=== PATIENT | male | born 1970 | race Caucasian/White ===

== ENCOUNTER 2019-03-21 09:58 | Emergency (ER) | payer OTHER ==
[2019-03-21 10:23] VITALS: RESP 18
--- NOTE | 2019-03-21 11:25 | ED ---
ENT HPI - General Chief complaint: ENT Stated complaint: epistaxis Time Seen by Provider: 03/21/19 10:46 Source: patient Limitations: no limitations - History of Present Illness Initial comments: Patient is a 48-year-old male presents to emergency department for nose bleeding. Patient reports the bleeding started earlier today and he could not get out of control with holding pressure only. Patient reports he started swallowing blood as well. Patient reports he occasionally gets nosebleeds especially throughout the winter but has never been this severe. Patient does have high blood pressure and is controlled with medication from his primary care. Patient denies any headaches, fever, vomiting, nausea. Patient reports he is taking daily 81 mg aspirin. - Related Data Home Medications Medication Instructions Recorded Confirmed Aspirin EC [Ecotrin Low Dose] 81 mg PO DAILY 09/21/16 09/23/16 Atenolol 25 mg PO BID 09/21/16 09/23/16 Atorvastatin [Lipitor] 10 mg PO HS 09/21/16 09/23/16 Dapagliflozin/Metformin HCl 1 tab PO DAILY 09/21/16 09/23/16 [Xigduo Xr 10 mg-1,000 mg Tab] Folic Acid 0.4 mg PO DAILY 09/21/16 09/23/16 Lisinopril [Zestril] 10 mg PO DAILY 09/21/16 09/23/16 Loratadine [Claritin] 10 mg PO DAILY PRN 09/21/16 09/23/16 Multivit-Min/FA/Vit K/Lycopene 1 tab PO HS 09/21/16 09/23/16 [One-A-Day Men's 50+ Tablet] Testosterone Cypionate 400 mg PO QMONTH 03/21/19 03/21/19 [Depo-Testosterone] Previous Rx's Medication Instructions Recorded Diazepam [Valium] 5 mg PO QID PRN #10 tab 09/23/16 Amoxicillin 500 mg PO Q8H 7 Days #21 capsule 03/21/19 Allergies Allergy/AdvReac Type Severity Reaction Status Date / Time No Known Allergies Allergy Verified 03/21/19 11:17 Review of Systems ROS Statement: Those systems with pertinent positive or pertinent negative responses have been documented in the HPI. ROS Other: All systems not noted in ROS Statement are negative. Past Medical History Past Medical History: Diabetes Mellitus, Hypertension History of Any Multi-Drug Resistant Organisms: None Reported Past Surgical History: No Surgical Hx Reported Past Psychological History: No Psychological Hx Reported Smoking Status: Never smoker Past Alcohol Use History: None Reported Past Drug Use History: None Reported General Exam - General Exam Comments Initial Comments: Profuse bleeding from right nostril. Limitations: no limitations General appearance: alert, in no apparent distress, obese Head exam: Present: atraumatic, normocephalic, normal inspection Eye exam: Present: normal appearance, PERRL, EOMI Expanded Ear exam: Present: normal external inspection Throat exam: normal inspection Neck exam: Present: normal inspection, full ROM. Absent: tenderness, lymphadenopathy Respiratory exam: Present: normal lung sounds bilaterally. Absent: respiratory distress, wheezes, rales, rhonchi, stridor Cardiovascular Exam: Present: regular rate, normal rhythm, normal heart sounds Neurological exam: Present: alert, oriented X3 Psychiatric exam: Present: normal affect, normal mood Course Vital Signs 03/21/19 10:20 Temperature 97.9 F Pulse Rate 77 Respiratory 18 Rate Blood Pressure 151/91 O2 Sat by Pulse 95 Oximetry Medical Decision Making - Medical Decision Making Patient is a 48-year-old male presenting to the emergency department with a nosebleed. It appears to be an anterior bleed on physical exam. Afrin and holding pressure did not stop the bleeding. Nasal balloon catheter was inserted in the right nostril. Patient will be prescribed amoxicillin for 5 days. Patient advised to follow-up with the ENT. Patient advised to return to the emergency department if symptoms worsen. Case discussed with physician. Disposition Clinical Impression: Epistaxis Disposition: HOME SELF-CARE Condition: Stable Instructions (If sedation given, give patient instructions): Nosebleed (ED) Additional Instructions: Please follow with the ENT. Take medication as prescribed for 5 days. Please return to the emergency department if symptoms worsen. Is patient prescribed a controlled substance at d/c from ED?: No Referrals: Rob Cotto MD [Primary Care Provider] - 1-2 days Solitario Mathis MD [STAFF PHYSICIAN] - 1-2 days Time of Disposition: 12:59
[2019-03-21] MEDS ORDERED: OXYMETAZOLINE 0.05% NASL SPRAY 1 SPRAY BOTTLE NASAL STA (11:26)
--- NOTE | 2019-03-21 13:10 | XR ---
EXAMINATION TYPE: XR chest 1V DATE OF EXAM: 03/21/2019 COMPARISON: NONE HISTORY: Cough and pain per order. TECHNIQUE: Single frontal view of the chest is obtained. FINDINGS: Reticular interstitial prominence favors chronic parenchymal fibrosis bilaterally diffusel y. Elevated left hemidiaphragm is noted. There is no focal air space opacity, pleural effusion, or pn eumothorax seen. The cardiac silhouette size is upper limits of normal. The osseous structures are intact. IMPRESSION: Chronic parenchymal changes somewhat pronounced for patient's age. No acute pulmonary pr ocess.
[2019-03-21 13:21] VITALS: BP 144/91; PULSE 74; TEMP 97
== END 2019-03-21 13:21 | disposition home or self-care (01) ==
LOC: EC 09:58
DX: R04.0 Epistaxis (principal); E11.9 Type 2 diabetes mellitus without complications; I10 Essential (primary) hypertension; Z79.82 Long term (current) use of aspirin; Z79.84 Long term (current) use of oral hypoglycemic drugs; Z79.890 Hormone replacement therapy; Z79.899 Other long term (current) drug therapy
CPT/HCPCS: 30901; 71045; 99283

== ENCOUNTER 2019-05-24 09:00 | Emergency (ER) | payer OTHER ==
[2019-05-24 09:06] VITALS: TEMP 97.8
[2019-05-24] MEDS ORDERED: OXYMETAZOLINE 0.05% NASL SPRAY 1 SPRAY BOTTLE NASAL STA (09:07)
[2019-05-24] MEDS ORDERED: ATENOLOL 25 MG TAB PO STA (09:11)
--- NOTE | 2019-05-24 09:32 | ED ---
ENT HPI - General Chief complaint: ENT Stated complaint: nosebleed Time Seen by Provider: 05/24/19 09:06 Source: patient, RN notes reviewed Mode of arrival: ambulatory Limitations: no limitations - History of Present Illness Initial comments: 48-year-old male presents emergency Department with chief complaint of epistaxis. Patient states started hour half prior arrival. Patient states that he had slight dripping states that she went to hold his nose but seemed to not improved. Patient states he had a similar episode 2 months ago. Patient states that he used to gastric but does not take anymore. Patient also states he has a history of high blood pressure did not take his medications this morning. Patient denies any headache, dizziness, blurred vision, nausea vomiting. - Related Data Home Medications Medication Instructions Recorded Confirmed Atenolol 25 mg PO DAILY 09/21/16 05/24/19 Atorvastatin [Lipitor] 10 mg PO HS 09/21/16 05/24/19 Dapagliflozin/Metformin HCl 1 tab PO DAILY 09/21/16 05/24/19 [Xigduo Xr 10 mg-1,000 mg Tab] Multivit-Min/FA/Vit K/Lycopene 1 tab PO DAILY 09/21/16 05/24/19 [One-A-Day Men's 50+ Tablet] Diazepam [Valium] 2 mg PO HS 05/24/19 05/24/19 Losartan [Cozaar] 25 mg PO DAILY 05/24/19 05/24/19 Oxymetazoline 0.05% Nasl [place] 2 spray EA NOSTRIL DAILY PRN 05/24/19 05/24/19 [Afrin 0.05% Nasal [place]] Previous Rx's Medication Instructions Recorded Amoxicillin/Potassium Clav 1 tab PO Q12HR #14 tab 05/24/19 [Augmentin 875-125 Tablet] Allergies Allergy/AdvReac Type Severity Reaction Status Date / Time No Known Allergies Allergy Verified 05/24/19 09:27 Review of Systems ROS Statement: Those systems with pertinent positive or pertinent negative responses have been documented in the HPI. ROS Other: All systems not noted in ROS Statement are negative. Past Medical History Past Medical History: Diabetes Mellitus, Hypertension History of Any Multi-Drug Resistant Organisms: None Reported Past Surgical History: No Surgical Hx Reported Past Psychological History: No Psychological Hx Reported Smoking Status: Never smoker Past Alcohol Use History: None Reported Past Drug Use History: None Reported General Exam Limitations: no limitations General appearance: alert, in no apparent distress Head exam: Present: atraumatic, normocephalic, normal inspection Eye exam: Present: normal appearance, PERRL, EOMI. Absent: scleral icterus, conjunctival injection, periorbital swelling ENT exam: Present: normal oropharynx, mucous membranes moist, TM's normal bilaterally, normal external ear exam, other (Mild blood noted in bilateral nostrils). Absent: normal exam Neck exam: Present: normal inspection, full ROM. Absent: tenderness, meningismus, lymphadenopathy Respiratory exam: Present: normal lung sounds bilaterally. Absent: respiratory distress, wheezes, rales, rhonchi, stridor Cardiovascular Exam: Present: regular rate, normal rhythm, normal heart sounds. Absent: systolic murmur, diastolic murmur, rubs, gallop, clicks Neurological exam: Present: alert, oriented X3, CN II-XII intact, reflexes normal. Absent: motor sensory deficit Skin exam: Present: warm, dry, intact, normal color. Absent: rash Course Vital Signs 05/24/19 05/24/19 09:03 10:23 Temperature 97.8 F Pulse Rate 65 Respiratory 16 Rate Blood Pressure 168/102 147/98 O2 Sat by Pulse 96 Oximetry Procedures - Procedures Initial comment: Nose packing: Right nostril on a rock there was placed with no complications, anterior posterior balloon were inflated with 3 mL of air, hemostasis was achieved Medical Decision Making - Medical Decision Making 48-year-old male presented for epistaxis. Patient had mild hypertension given patient's blood pressure medication that he did not take this morning. Patient had Afrin and nose clamp applied no success with hemostasis. Patient had Rhino Rocket placed. Patiently placed on antibiotics and follow-up with Dr. Mathis as he has seen him in the past. Disposition Clinical Impression: Epistaxis Disposition: HOME SELF-CARE Condition: Stable Instructions (If sedation given, give patient instructions): Nosebleed (ED) Additional Instructions: Please return to the Emergency Department if symptoms worsen or any other concerns. Prescriptions: Amoxicillin/Potassium Clav [Augmentin 875-125 Tablet] 1 tab PO Q12HR #14 tab Is patient prescribed a controlled substance at d/c from ED?: No Referrals: Rob Cotto MD [Primary Care Provider] - 1-2 days Solitario Mathis MD [STAFF PHYSICIAN] - 1-2 days Time of Disposition: 11:24
[2019-05-24] MEDS ORDERED: LOSARTAN 25 MG TAB PO STA (10:23)
[2019-05-24 11:31] VITALS: BP 155/100; PULSE 70; RESP 18
== END 2019-05-24 11:30 | disposition home or self-care (01) ==
LOC: EC 09:00
DX: R04.0 Epistaxis (principal); I10 Essential (primary) hypertension; E11.9 Type 2 diabetes mellitus without complications; Z79.84 Long term (current) use of oral hypoglycemic drugs; Z79.899 Other long term (current) drug therapy
CPT/HCPCS: 30901; 99283

== ENCOUNTER → 2020-06-19 | Outpatient (CLI) | payer BC ==
[2020-06-19 11:47] LABS: African American GFR (CKD) >90 (>60 ml/min/1.73 sqM); Blood Urea Nitrogen 12 mg/dL (9-20); Non-African American GFR(CKD) >90 (>60 ml/min/1.73 sqM)
--- NOTE | 2020-06-19 12:42 | CT ---
EXAMINATION TYPE: CT abdomen pelvis wo/w con DATE OF EXAM: 06/19/2020 COMPARISON: HISTORY: Mid Abdominal pain CT DLP: 3784.9 mGycm Automated exposure control for dose reduction was used. CONTRAST: CT scan of the abdomen pelvis is performed with IV Contrast, patient injected with 100 mL of Isovue 3 00. FINDINGS- LUNG BASES- No significant abnormality is appreciated. LIVER/GB- No gross abnormality is appreciated. PANCREAS- No gross abnormality is seen. SPLEEN- No gross abnormality is seen. ADRENALS- No gross abnormality is seen. KIDNEYS/BLADDER- no hydronephrosis nephrolithiasis or renal mass. BOWEL-there are multiple dilated small bowel loops some of which have a thickened wall. Differential diagnosis would include an ileus and enteritis. Partial obstructive pattern not excluded. Appendix no rmal. Report called to referring clinician. LYMPH NODES- No greater than 1cm abdominal or pelvic lymph nodes areappreciated. OSSEOUS STRUCTURES-hypertrophic degenerative change of the spine. OTHER- aorta normal caliber. No free fluid or free air. IMPRESSION- 1. Multiple dilated small bowel loops one of which appears a little thickened bowel wall. Differentia l diagnosis includes ileus and enteritis. Partial obstructive pattern not excluded.
== END | disposition home or self-care (01) ==
LOC: RADCTMAIN 10:12
PROVIDERS: ATTEND Nurse Practitioner Family
DX: K63.89 Other specified diseases of intestine (principal); K52.9 Noninfective gastroenteritis and colitis, unspecified; K56.7 Ileus, unspecified
CPT/HCPCS: 82565; 84520; 74178; 36415; Q9967

== ENCOUNTER 2022-06-27 21:29 | Inpatient (IN) | payer BC ==
[2022-06-27] MEDS ORDERED: SODIUM CHLORIDE 0.9% 1,000 ML IV STA (21:36)
[2022-06-27] MEDS ORDERED: ONDANSETRON 4 MG/2 ML VIAL IVP STA ×2 (21:36→21:50)
[2022-06-27 21:53] LABS: Glucose,Whole Blood 215 mg/dL (70-110)
[2022-06-27 22:01] LABS: Basophils # (A) 0.1 k/uL (0-0.2); Basophils % (A) 1 %; Eosinophils # (A) 0.1 k/uL (0-0.7); Eosinophils % (A) 2 %; Lymphocytes # (A) 0.3 k/uL (1.0-4.8); Lymphocytes % (A) 5 %; MCH 30.9 pg (25.0-35.0); MCHC 34.2 g/dL (31.0-37.0); MCV 90.5 fL (80.0-100.0); Mean Platelet Volume 8.8; Monocytes # (A) 0.5 k/uL (0-1.0); Monocytes % (A) 8 %; Neutrophils # (A) 4.9 k/uL (1.3-7.7); Neutrophils % (A) 83 %; Platelet Count 164 k/uL (150-450); RBC 6.31 m/uL (4.30-5.90); RDW 13.2 % (11.5-15.5); WBC 5.8 k/uL (3.8-10.6)
--- NOTE | 2022-06-27 22:09 | ED ---
Abdominal Pain HPI - General Chief Complaint: Abdominal Pain Stated Complaint: Abdominal pain Time Seen by Provider: 06/27/22 21:32 Source: patient, RN notes reviewed Mode of arrival: ambulatory - History of Present Illness Initial Comments: This is a pleasant 52-year-old male history of diabetes mellitus and hypertension. He presents to the emergency department today complaining of upper abdominal discomfort and several episodes of vomiting yesterday. Patient states that the symptoms started on . Patient states he still having bowel movements and passing gas. Patient states his abdomen is distended and bloated. Patient denying any chest pain or shortness of breath. Patient states the symptoms started 89 vacationing in [place]. No headache, no fever or chills, no changes in vision or hearing, no sore throat or difficulty with speech, no neck pain, no chest pain or shortness of breath, no changes in urination or bowel movements, no numbness or tingling, no extremity pain, no skin rashes or lesions. Past medical, surgical, social, and family history reviewed. - Related Data Home Medications Medication Instructions Recorded Confirmed Atorvastatin [Lipitor] 10 mg PO HS 09/21/16 05/24/19 Dapagliflozin/Metformin HCl 1 tab PO DAILY 09/21/16 05/24/19 [Xigduo Xr 10 mg-1,000 mg Tab] Multivit-Min/Folic/Vit K/Lycop 1 tab PO DAILY 09/21/16 05/24/19 [One-A-Day Men's 50+ Tablet] atenoloL 25 mg PO DAILY 09/21/16 05/24/19 Losartan [Cozaar] 25 mg PO DAILY 05/24/19 05/24/19 Oxymetazoline 0.05% Nasl [place] 2 spray EA NOSTRIL DAILY PRN 05/24/19 05/24/19 [Afrin 0.05% Nasal [place]] diazePAM [Valium] 2 mg PO HS 05/24/19 05/24/19 Previous Rx's Medication Instructions Recorded Amoxicillin/Potassium Clav 1 tab PO Q12HR #14 tab 05/24/19 [Augmentin 875-125 Tablet] Allergies Allergy/AdvReac Type Severity Reaction Status Date / Time No Known Allergies Allergy Verified 06/27/22 21:34 Review of Systems ROS Statement: Those systems with pertinent positive or pertinent negative responses have been documented in the HPI. ROS Other: All systems not noted in ROS Statement are negative. Past Medical History Past Medical History: Diabetes Mellitus, Hypertension History of Any Multi-Drug Resistant Organisms: None Reported Past Surgical History: No Surgical Hx Reported Past Psychological History: No Psychological Hx Reported Past Alcohol Use History: None Reported Past Drug Use History: None Reported General Exam - General Exam Comments Initial Comments: Obese male and mild distress secondary to abdominal discomfort Vital signs reviewed, patient tachycardic General appearance: alert, in distress, obese Head exam: Present: atraumatic, normocephalic, normal inspection Eye exam: Present: normal appearance, PERRL, EOMI. Absent: scleral icterus, conjunctival injection, periorbital swelling ENT exam: Present: normal exam, mucous membranes moist Neck exam: Present: normal inspection. Absent: tenderness, meningismus, lymphadenopathy Respiratory exam: Present: normal lung sounds bilaterally. Absent: respiratory distress, wheezes, rales, rhonchi, stridor, chest wall tenderness, accessory muscle use Cardiovascular Exam: Present: normal rhythm, tachycardia, normal heart sounds. Absent: systolic murmur, diastolic murmur, rubs, gallop, clicks GI/Abdominal exam: Present: distended, normal bowel sounds. Absent: tenderness, guarding, rebound, rigid Extremities exam: Present: normal inspection, full ROM, normal capillary refill. Absent: tenderness, pedal edema, joint swelling, calf tenderness Back exam: Present: normal inspection Neurological exam: Present: alert, oriented X3, CN II-XII intact Psychiatric exam: Present: normal affect, normal mood Skin exam: Present: warm, dry, intact, normal color. Absent: rash Course Vital Signs 06/27/22 06/27/22 21:32 22:10 Temperature 98.1 F Pulse Rate 124 H 106 H Respiratory 18 Rate Blood Pressure 132/84 149/118 O2 Sat by Pulse 96 Oximetry - Reevaluation(s) Reevaluation #1: 06/27/22 23:28 Medical record is reviewed Symptoms are mildly improved, patient still has nausea, NG tube ordered Patient is informed of results and questions answered Patient in no distress - Consultations Consultation #1: Call placed for the on-call surgeon, Dr. Christensen Consultation #2: Case discussed with the hospitalist physician, Dr. Philippe who accepts the patient for admission. Medical Decision Making - Medical Decision Making I initially evaluated the patient. I did have the ED attending physician, Dr. Evans evaluated the patient immediately after my evaluation. Patient's presents in mild seems to be consistent with gastroenterology etiology. Patient's EKG did show interventricular conduction delay however the patient had no chest pain. We'll order a general abdominal cardiac workup. Plan for reevaluation. Inflammatory versus infectious etiology possible. Patient previously has had a bowel obstruction which resolved with IV hydration and bowel rest. Patient has had no previous abdominal surgeries. Patient computed tomography scan does show multiple dilated loops of small bowel up to 5.7 cm, transition point could be the distal jejunum or proximal ileum. Consistent with mechanical mid small bowel obstruction. Over the last and the patient had this issue, and it actually resolved in the emergency department. Patient did not require admission nor an NG tube. - Lab Data Result diagrams: 06/27/22 21:50 06/27/22 21:50 Lab Results 06/27/22 06/27/22 06/27/22 Range/Units 21:50 21:50 21:50 WBC 5.8 (3.8-10.6) k/uL RBC 6.31 H (4.30-5.90) m/uL Hgb 19.5 H* (13.0-17.5) gm/dL Hct 57.0 H (39.0-53.0) % MCV 90.5 (80.0-100.0) fL MCH 30.9 (25.0-35.0) pg MCHC 34.2 (31.0-37.0) g/dL RDW 13.2 (11.5-15.5) % Plt Count 164 (150-450) k/uL MPV 8.8 Neutrophils % 83 % Lymphocytes % 5 % Monocytes % 8 % Eosinophils % 2 % Basophils % 1 % Neutrophils # 4.9 (1.3-7.7) k/uL Lymphocytes # 0.3 L (1.0-4.8) k/uL Monocytes # 0.5 (0-1.0) k/uL Eosinophils # 0.1 (0-0.7) k/uL Basophils # 0.1 (0-0.2) k/uL Sodium 135 L (137-145) mmol/L Potassium 3.8 (3.5-5.1) mmol/L Chloride 99 (98-107) mmol/L Carbon Dioxide 24 (22-30) mmol/L Anion Gap 12 mmol/L BUN 16 (9-20) mg/dL Creatinine 0.63 L (0.66-1.25) mg/dL Est GFR (CKD-EPI)AfAm >90 (>60 ml/min/1.73 sqM) Est GFR (CKD-EPI)NonAf >90 (>60 ml/min/1.73 sqM) Glucose 218 H (74-99) mg/dL POC Glucose (mg/dL) (70-110) mg/dL POC Glu Zinc Chloride Operator ID Plasma Lactic Acid Denilson (0.7-2.0) mmol/L Calcium 9.4 (8.4-10.2) mg/dL Magnesium 1.7 (1.6-2.3) mg/dL Total Bilirubin 1.7 H (0.2-1.3) mg/dL AST 30 (17-59) U/L ALT 31 (4-49) U/L Alkaline Phosphatase 63 (38-126) U/L Troponin I <0.012 (0.000-0.034) ng/mL Total Protein 7.1 (6.3-8.2) g/dL Albumin 4.5 (3.5-5.0) g/dL Amylase 46 (30-110) U/L Lipase 35 (23-300) U/L 06/27/22 06/27/22 Range/Units 21:50 22:16 WBC (3.8-10.6) k/uL RBC (4.30-5.90) m/uL Hgb (13.0-17.5) gm/dL Hct (39.0-53.0) % MCV (80.0-100.0) fL MCH (25.0-35.0) pg MCHC (31.0-37.0) g/dL RDW (11.5-15.5) % Plt Count (150-450) k/uL MPV Neutrophils % % Lymphocytes % % Monocytes % % Eosinophils % % Basophils % % Neutrophils # (1.3-7.7) k/uL Lymphocytes # (1.0-4.8) k/uL Monocytes # (0-1.0) k/uL Eosinophils # (0-0.7) k/uL Basophils # (0-0.2) k/uL Sodium (137-145) mmol/L Potassium (3.5-5.1) mmol/L Chloride (98-107) mmol/L Carbon Dioxide (22-30) mmol/L Anion Gap mmol/L BUN (9-20) mg/dL Creatinine (0.66-1.25) mg/dL Est GFR (CKD-EPI)AfAm (>60 ml/min/1.73 sqM) Est GFR (CKD-EPI)NonAf (>60 ml/min/1.73 sqM) Glucose (74-99) mg/dL POC Glucose (mg/dL) 215 H (70-110) mg/dL POC Glu Zinc Chloride Operator Carlos Glass Plasma Lactic Acid Denilson 1.5 (0.7-2.0) mmol/L Calcium (8.4-10.2) mg/dL Magnesium (1.6-2.3) mg/dL Total Bilirubin (0.2-1.3) mg/dL AST (17-59) U/L ALT (4-49) U/L Alkaline Phosphatase (38-126) U/L Troponin I (0.000-0.034) ng/mL Total Protein (6.3-8.2) g/dL Albumin (3.5-5.0) g/dL Amylase (30-110) U/L Lipase (23-300) U/L - EKG Data EKG Comments: EKG shows sinus tachycardia with a rate of 116. Interventricular conduction delay with a widened QRS at 154 ms. Remainder of the intervals are normal. Patient does have nonspecific ST-T wave changes in the lateral leads. EKG was reviewed immediately by the ED attending physician. Disposition Clinical Impression: Small bowel obstruction, Intraventricular conduction delay, Uncontrolled hypertension Disposition: ADMITTED IP TO THIS HOSP Condition: Stable Referrals: Rob Cotto MD [Primary Care Provider] - 1-2 days
[2022-06-27 22:13] LABS: ALT 31 U/L (4-49); AST 30 U/L (17-59); African American GFR (CKD) >90 (>60 ml/min/1.73 sqM); Albumin 4.5 g/dL (3.5-5.0); Alkaline Phosphatase 63 U/L (38-126); Amylase 46 U/L (30-110); Anion Gap 12 mmol/L; Blood Urea Nitrogen 16 mg/dL (9-20); Calcium 9.4 mg/dL (8.4-10.2); Carbon Dioxide 24 mmol/L (22-30); Chloride 99 mmol/L (98-107); Glucose 218 mg/dL (74-99); Lipase 35 U/L (23-300); Magnesium 1.7 mg/dL (1.6-2.3); Non-African American GFR(CKD) >90 (>60 ml/min/1.73 sqM); Potassium 3.8 mmol/L (3.5-5.1); Sodium 135 mmol/L (137-145); Total Bilirubin 1.7 mg/dL (0.2-1.3); Total Protein 7.1 g/dL (6.3-8.2)
[2022-06-27 22:37] LABS: HGB 19.5 gm/dL (13.0-17.5)
--- NOTE | 2022-06-27 22:37 | XR ---
EXAMINATION TYPE: XR abdomen acute w cxr DATE OF EXAM: 06/27/2022 COMPARISON: Chest x-ray 03/21/2019 HISTORY: Pain TECHNIQUE: 6 views FINDINGS: Heart and mediastinum are normal. Lungs are clear of infiltrate. No pleural effusion. No he art failure. There are multiple dilated fluid-filled and air-filled small bowel loops in the mid abdomen. No free air. No calcifications seen over the kidneys. IMPRESSION: No active cardiopulmonary disease. Dilated small bowel suggestive of mechanical small bowel obstruction. Heart and lungs not changed compared to the old exam.
--- NOTE | 2022-06-27 23:21 | CT ---
EXAMINATION TYPE: CT abdomen pelvis w con DATE OF EXAM: 06/27/2022 COMPARISON: 06/19/2020 HISTORY: abd pain CT DLP: 2189.3 mGycm Automated exposure control for dose reduction was used. CONTRAST: Performed with IV Contrast, patient injected with 100 mL of Isovue 300. Images obtained from the diaphragm to the floor the pelvis with the IV contrast. The lung bases are clear. No pleural effusion. Heart size is normal. No pericardial effusion. Liver s pleen and stomach pancreas gallbladder appear intact. The bile ducts are not dilated. There is no adr enal mass. Kidneys show satisfactory contrast opacification. There is no hydronephrosis. Ureters are not dilated. There is no retroperitoneal adenopathy. No free fluid in the pelvis. No pelvic mass. Palmer dder distends smoothly. No inguinal hernia. No pelvic mass. There are multiple dilated fluid-filled small bowel loops with fluid levels. Small bowel dilated up t o 5.7 cm. Appendix appears normal. The terminal ileum is not dilated. Transition point could be the d istal jejunum or proximal ileum on the left side of the abdomen near the abdominal wall. No obstructi ng mass seen. This could be a stricture. There is no free air. There is no ascites. The lumbar vertebrae have normal alignment. No compression fracture. There is some spurring in the mariana mbar spine. Bony pelvis is intact. The hip joints are intact. IMPRESSION: Dilated small bowel suggestive of mechanical mid small bowel obstruction which is a change compared t o old exam. Normal appendix.
[2022-06-27] MEDS ORDERED: ONDANSETRON 4 MG/2 ML VIAL IVP PRN (23:49)
[2022-06-27] MEDS ORDERED: NALOXONE 0.4 MG/ML 1 ML VIAL IV PRN (23:49)
[2022-06-27] MEDS ORDERED: MORPHINE SULFATE 4 MG/ML SYRINGE IV PRN (23:49)
[2022-06-27] MEDS ORDERED: DEXTROSE 50% SYRINGE 50 ML IVP PRN ×2 (23:52)
[2022-06-28 00:02] LABS: Appearance,Urine Clear (Clear); Bilirubin,Urine Negative (Negative); Blood,Urine Negative (Negative); Color,Urine Yellow; Glucose,Urine (UA) 4+ (Negative); Leukocyte Esterase,Urine Negative (Negative); Nitrite,Urine Negative (Negative); PH, Urine 5.5 (5.0-8.0); Protein,Urine Trace (Negative); Urobilinogen,Urine <2.0 mg/dL (<2.0)
[2022-06-28 00:03] LABS: Specific Gravity,Urine >1.050 (1.001-1.035)
[2022-06-28 00:05] LABS: Ketones,Urine 2+ (Negative)
[2022-06-28] MEDS: HEPARIN SODIUM,PORCINE/PF 5,000 UNIT/0.5 ML SYRINGE SQ SCH ×3 (01:58→16:47)
[2022-06-28] MEDS: INSULIN ASPART (NovoLOG) 100 UNIT/ML VIAL SQ SCH ×6 (01:59→20:52)
[2022-06-28] MEDS: SODIUM CHLORIDE 0.9% 1,000 ML IV SCH ×4 (01:59→22:53)
--- NOTE | 2022-06-28 03:27 | P.HPIM ---
History of Present Illness H&P Date: 06/27/22 Chief Complaint: abdominal pain 52-year-old male with diabetes mellitus on oral hypoglycemic agents, hypertension Patient comes in with 3 day history of worsening abdominal pain and distention associated with episodes of vomiting nonbilious nonbloody. He reports that she still passing bowel movements loose in nature nonbloody and still passing gases however is started to affect his breathing gets his belly is getting bigger it all started after history of to [place] and eating new foods. Initially he thought he might have had something upset his stomach however he decided to come in due to persistent symptoms. Denies any fevers denies any chills denies any history of any surgeries of the belly denies any changes in his urinary habits patient is unable to keep anything down he has poor appetite and today abdominal distention started affecting his breathing. In the ED workup showed no leukocytosis, lactic acid within normal limits, renal function within normal limits. Polycythemia with hemoglobin 19.5 most recent hemoglobin was from 2017 hemoglobin was around 18. Imaging of the abdomen with CAT scan suggested mechanical small bowel obstruction, surgery notified by ED attempted NG tube insertion in the ED however failed through both nostrils Review of Systems Pertinent positives as noted in HPI. All other systems were reviewed and are negative Past Medical History Past Medical History: Diabetes Mellitus, Hypertension Additional Past Medical History / Comment(s): small bowel obst. History of Any Multi-Drug Resistant Organisms: None Reported Past Surgical History: No Surgical Hx Reported Past Psychological History: No Psychological Hx Reported Smoking Status: Never smoker Past Alcohol Use History: None Reported Past Drug Use History: None Reported - Past Family History Father Family Medical History: Diabetes Mellitus Mother Family Medical History: Diabetes Mellitus Medications and Allergies Home Medications Medication Instructions Recorded Confirmed Type Atorvastatin [Lipitor] 10 mg PO HS 09/21/16 05/24/19 History Dapagliflozin/Metformin HCl 1 tab PO DAILY 09/21/16 05/24/19 History [Xigduo Xr 10 mg-1,000 mg Tab] Multivit-Min/Folic/Vit K/Lycop 1 tab PO DAILY 09/21/16 05/24/19 History [One-A-Day Men's 50+ Tablet] atenoloL 25 mg PO DAILY 09/21/16 05/24/19 History Amoxicillin/Potassium Clav 1 tab PO Q12HR #14 tab 05/24/19 Rx [Augmentin 875-125 Tablet] Losartan [Cozaar] 25 mg PO DAILY 05/24/19 05/24/19 History Oxymetazoline 0.05% Nasl [place] 2 spray EA NOSTRIL DAILY PRN 05/24/19 05/24/19 History [Afrin 0.05% Nasal [place]] diazePAM [Valium] 2 mg PO HS 05/24/19 05/24/19 History Allergies Allergy/AdvReac Type Severity Reaction Status Date / Time No Known Allergies Allergy Verified 06/27/22 21:34 Physical Exam Vitals: Vital Signs Temp Pulse Resp BP Pulse Ox 06/28/22 00:25 97 140/91 97 06/27/22 23:54 95 139/84 06/27/22 22:10 106 H 149/118 06/27/22 21:32 98.1 F 124 H 18 132/84 96 Intake and Output 06/27/22 06/27/22 06/28/22 14:59 22:59 06:59 Other: Weight 120.202 kg 120.202 kg Constitutional: No acute distress, conversant, pleasant Eyes: Anicteric sclerae, moist conjunctiva, Pupils equal round reactive to light ENMT: NC/AT Oropharynx clear, no erythema, or exudates Neck: Supple, FROM, no masses, or JVD No carotid bruits No thyromegaly Lungs: Clear to auscultation Clear to percussion Normal respiratory effort, no accessory muscle use Cardiovascular: Heart regular in rate and rhythm, No murmurs, gallops, or rubs No peripheral edema Abdominal: abdomen distended, discomfort to deep palpation no guarding, rebound or rigidity Abdomen moving with respiration bowel sounds sluggish No hepatomegaly, No splenomegaly No palpable mass No abdominal wall hernia noted Skin: Normal temperature, tone, texture, turgor No induration No subcutaneous nodules No rash, lesions No ulcers Extremities: No digital cyanosis No clubbing Pedal pulses intact and symmetrical Radial pulses intact and symmetrical No calf tenderness Psychiatric: Alert and oriented to person, place and time Appropriate affect fair judgement Neuro Muscles Strength 5/5 in all 4 extremities Sensation to light touch grossly present throughout Cranial nerves II-XII grossly intact No focal sensory deficits Lymphatics: no palpable cervical or supraclavicular , or inguinal lymph nodes Results CBC & Chem 7: 06/27/22 21:50 06/27/22 21:50 Labs: Abnormal Lab Results - Last 24 Hours (Table) 06/27/22 06/27/22 06/27/22 Range/Units 21:50 21:50 21:50 RBC 6.31 H (4.30-5.90) m/uL Hgb 19.5 H* (13.0-17.5) gm/dL Hct 57.0 H (39.0-53.0) % Lymphocytes # 0.3 L (1.0-4.8) k/uL Sodium 135 L (137-145) mmol/L Creatinine 0.63 L (0.66-1.25) mg/dL Glucose 218 H (74-99) mg/dL POC Glucose (mg/dL) 215 H (70-110) mg/dL Total Bilirubin 1.7 H (0.2-1.3) mg/dL Ur Specific [place] (1.001-1.035) Urine Protein (Negative) Urine Glucose (UA) (Negative) Urine Ketones (Negative) 06/27/22 Range/Units 23:50 RBC (4.30-5.90) m/uL Hgb (13.0-17.5) gm/dL Hct (39.0-53.0) % Lymphocytes # (1.0-4.8) k/uL Sodium (137-145) mmol/L Creatinine (0.66-1.25) mg/dL Glucose (74-99) mg/dL POC Glucose (mg/dL) (70-110) mg/dL Total Bilirubin (0.2-1.3) mg/dL Ur Specific [place] >1.050 H (1.001-1.035) Urine Protein Trace H (Negative) Urine Glucose (UA) 4+ H (Negative) Urine Ketones 2+ H (Negative) Thrombosis Risk Factor Assmnt - Choose All That Apply Any of the Below Risk Factors Present?: Yes Each Factor Represents 1 point: Obesity (BMI >25) Other Risk Factors: No Other congenital or acquired thrombophilia - If yes, enter type in comment: No Thrombosis Risk Factor Assessment Total Risk Factor Score: 1 Thrombosis Risk Factor Assessment Level: Low Risk Assessment and Plan Assessment: small bowel obstruction Conservative management Surgery on consult IV fluid hydration normal saline Pain control Symptomatic control nausea vomiting Nothing by mouth CT imaging of the abdomen showed mechanical small bowel obstruction lactic acid within normal limits Renal function within normal limits Polycythemia Follow-up hemoglobin level Consider outpatient workup for polycythemia Hematology consult Chronic conditions Diabetes mellitus Assessment sliding scale Hypertension Resume home blood pressure meds DVT prophylaxis heparin subcu 3 times a day Full code
[2022-06-28 03:31] LABS: Basophils # (A) 0.1 k/uL (0-0.2); Basophils % (A) 1 %; Eosinophils # (A) 0.1 k/uL (0-0.7); Eosinophils % (A) 2 %; HGB 18.6 gm/dL (13.0-17.5); Lymphocytes # (A) 0.4 k/uL (1.0-4.8); Lymphocytes % (A) 7 %; MCH 30.3 pg (25.0-35.0); MCHC 33.1 g/dL (31.0-37.0); MCV 91.7 fL (80.0-100.0); Mean Platelet Volume 8.7; Monocytes # (A) 0.6 k/uL (0-1.0); Monocytes % (A) 12 %; Neutrophils # (A) 3.6 k/uL (1.3-7.7); Neutrophils % (A) 76 %; Platelet Count 148 k/uL (150-450); RBC 6.14 m/uL (4.30-5.90); RDW 13.3 % (11.5-15.5); WBC 4.7 k/uL (3.8-10.6)
[2022-06-28 03:33] LABS: HCT 56.3 % (39.0-53.0)
[2022-06-28 03:42] LABS: ALT 35 U/L (4-49); AST 41 U/L (17-59); African American GFR (CKD) >90 (>60 ml/min/1.73 sqM); Albumin 4.1 g/dL (3.5-5.0); Alkaline Phosphatase 60 U/L (38-126); Anion Gap 10 mmol/L; Blood Urea Nitrogen 15 mg/dL (9-20); Carbon Dioxide 23 mmol/L (22-30); Chloride 101 mmol/L (98-107); Glucose 186 mg/dL (74-99); Magnesium 1.7 mg/dL (1.6-2.3); Non-African American GFR(CKD) >90 (>60 ml/min/1.73 sqM); Potassium 3.9 mmol/L (3.5-5.1); Sodium 134 mmol/L (137-145); Total Bilirubin 1.4 mg/dL (0.2-1.3); Total Protein 6.7 g/dL (6.3-8.2)
[2022-06-28 04:04] LABS: Glucose,Whole Blood 171 mg/dL (70-110)
[2022-06-28 09:41] LABS: Glucose,Whole Blood 179 mg/dL (70-110)
[2022-06-28 11:43] LABS: Glucose,Whole Blood 138 mg/dL (70-110)
[2022-06-28] MEDS ORDERED: BENZOCAINE SPRAY 1 CAN MUCOUS MEM PRN (12:21)
--- NOTE | 2022-06-28 12:44 | XR ---
EXAMINATION TYPE: XR abdomen 2V DATE OF EXAM: 06/28/2022 COMPARISON: CT abdomen and pelvis 06/27/2022 HISTORY: Abdomen pain, bowel obstruction TECHNIQUE: Abdomen is examined upright view 2 supine views were obtained. FINDINGS: Nasogastric tube is in place with tip in the proximal left arm in the abdomen. There are multiple differential air-fluid levels within dilated small bowel. Small bowel loops measur e 6.9 cm. No free air is evident. No mass effect is evident. Small amount colonic bowel gas in the right lower quadrant. Some air may be within the transverse colon. IMPRESSION: 1. Findings suggestive of partial small bowel obstruction. Findings appear stable from comparison.
--- NOTE | 2022-06-28 12:44 | P.CRDCN ---
History of Present Illness Consult date: 06/28/22 History of present illness: HISTORY OF PRESENT ILLNESS: This is a 52 year old male with a past medical history significant for hypertension, hyperlipidemia, and diabetes. 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 We have been asked to see the patient in consultation for abnormal EKG. Patient examined at the bedside. Patient presented to emergency room with a chief complaint of abdominal pain. Patient was found to have bowel obstruction and had an NG tube inserted. General surgery has been consulted for evaluation. The patient denies any chest pain or pressure. He denies any shortness of breath. He denies any previous cardiac workup including a stress test or cardiac catheterization. Patient's vital signs are stable. * EKG reveals sinus tachycardia with left bundle branch block. Telemetry reveals sinus mechanism with left bundle-branch block. * Laboratory data: WBC 4.7. Hemoglobin 18.6. Platelet count 148. Sodium 134. Potassium 3.9. BUN 15. Creatinine 0.72. Troponin negative 3 * Current home cardiac medications include Lipitor 10 mg at night, Cozaar 25 mg daily, atenolol 25 mg twice a day REVIEW OF SYSTEMS: At the time of my exam: CONSTITUTIONAL: Denies fever or chills. HEENT: Denies blurred vision, vision changes, or eye pain. Denies hemoptysis CARDIOVASCULAR: Denies chest pain. Denies orthopnea. Denies PND. Denies palpitations RESPIRATORY: Denies shortness of breath. GASTROINTESTINAL: Denies abdominal pain. Denies nausea or vomiting. HEMATOLOGIC: Denies bleeding disorders. GENITOURINARY: Denies any blood in urine. SKIN: Denies pruitis. Denies rash. PHYSICAL EXAM: VITAL SIGNS: Reviewed. GENERAL: Well-developed in no acute distress. HEENT: Head is normocephalic. Pupils are equal, round. Sclerae anicteric. Mucous membranes of the mouth are moist. Neck supple. No JVD or thyromegaly LUNGS: Respirations even and unlabored. Lungs essentially clear to auscultation bilaterally. HEART: Regular rate and rhythm. S1 and S2 heard. ABDOMEN: Soft. Nondistended. Nontender. EXTREMITIES: Normal range of motion. No clubbing or cyanosis. Peripheral p ulses intact. No lower extremity edema NEUROLOGIC: Awake and alert. Oriented x 3. ASSESSMENT: Abdominal pain Small bowel obstruction Abnormal EKG revealing left bundle branch block, appears new compared to old EKG Hypertension Hyperlipidemia Diabetes PLAN: Obtain 2-D echo to assess cardiac structure and function Resume home cardiac medications Gen. surgery consulted. Await evaluation. Patient is currently stable from a cardiac perspective. However when his acute issues resolve he will require further cardiac workup on an outpatient basis. Further recommendations pending patient's course Nurse practitioner note has been reviewed by physician. Signing provider agrees with the documented findings, assessment, and plan of care. Past Medical History Past Medical History: Diabetes Mellitus, Hypertension Additional Past Medical History / Comment(s): small bowel obst. History of Any Multi-Drug Resistant Organisms: None Reported Past Surgical History: No Surgical Hx Reported Past Psychological History: No Psychological Hx Reported Smoking Status: Never smoker Past Alcohol Use History: None Reported Past Drug Use History: None Reported - Past Family History Father Family Medical History: Diabetes Mellitus Mother Family Medical History: Diabetes Mellitus Medications and Allergies Home Medications Medication Instructions Recorded Confirmed Type Atorvastatin [Lipitor] 10 mg PO HS@199909/21/16 06/28/22 History Dapagliflozin/Metformin HCl 1 tab PO DAILY@0609/21/16 06/28/22 History [Xigduo Xr 10 mg-1,000 mg Tab] Multivit-Min/Folic/Vit K/Lycop 1 tab PO DAILY@0600 09/21/16 06/28/22 History [One-A-Day Men's 50+ Tablet] atenoloL 25 mg PO BID@599,199909/21/16 06/28/22 History Losartan [Cozaar] 25 mg PO DAILY@59905/24/19 06/28/22 History diazePAM [Valium] 2 mg PO HS@199905/24/19 06/28/22 History Acetaminophen Tab [Tylenol] 1,000 mg PO Q6H PRN 06/28/22 06/28/22 History Finerenone [Kerendia] 10 mg PO DAILY@0600 06/28/22 06/28/22 History Testosterone Cypionate 400 mg IM Q30D 06/28/22 06/28/22 History [Depo-Testosterone] diazePAM [Valium] 2 mg PO HS PRN 06/28/22 06/28/22 History Allergies Allergy/AdvReac Type Severity Reaction Status Date / Time No Known Allergies Allergy Verified 06/28/22 07:51 Physical Exam Vitals: Vital Signs Temp Pulse Pulse Resp BP BP Pulse Ox 06/28/22 04:15 80 18 135/77 95 06/28/22 01:30 98.8 F 88 18 147/91 94 L 06/28/22 00:25 97 140/91 97 06/27/22 23:54 95 139/84 06/27/22 22:10 106 H 149/118 06/27/22 21:32 98.1 F 124 H 18 132/84 96 Intake and Output 06/27/22 06/28/22 06/28/22 22:59 06:59 14:59 Other: Weight 120.202 kg 120.202 kg Results 06/28/22 02:29 06/28/22 02:29 Cardiac Enzymes 06/27/22 06/27/22 06/28/22 Range/Units 21:50 21:50 00:04 AST 30 (17-59) U/L Troponin I <0.012 <0.012 (0.000-0.034) ng/mL 06/28/22 06/28/22 Range/Units 02:29 02:29 AST 41 (17-59) U/L Troponin I <0.012 (0.000-0.034) ng/mL CBC 06/27/22 06/28/22 Range/Units 21:50 02:29 WBC 5.8 4.7 (3.8-10.6) k/uL RBC 6.31 H 6.14 H (4.30-5.90) m/uL Hgb 19.5 H* 18.6 H (13.0-17.5) gm/dL Hct 57.0 H 56.3 H (39.0-53.0) % Plt Count 164 148 L (150-450) k/uL Comprehensive Metabolic Panel 06/27/22 06/28/22 Range/Units 21:50 02:29 Sodium 135 L 134 L (137-145) mmol/L Potassium 3.8 3.9 (3.5-5.1) mmol/L Chloride 99 101 (98-107) mmol/L Carbon Dioxide 24 23 (22-30) mmol/L BUN 16 15 (9-20) mg/dL Creatinine 0.63 L 0.72 (0.66-1.25) mg/dL Glucose 218 H 186 H (74-99) mg/dL Calcium 9.4 9.0 (8.4-10.2) mg/dL AST 30 41 (17-59) U/L ALT 31 35 (4-49) U/L Alkaline Phosphatase 63 60 (38-126) U/L Total Protein 7.1 6.7 (6.3-8.2) g/dL Albumin 4.5 4.1 (3.5-5.0) g/dL Current Medications Generic Name Dose Route Start Last Admin Trade Name Sosa PRN Reason Stop Dose Admin Atenolol 25 mg 06/28/22 09:00 Atenolol 25 Mg Tab PO DAILY JONAS Dextrose/Water 25 ml 06/27/22 23:52 Dextrose 50% Syringe 50 Ml IVP PER PROTOCOL PRN Hypoglycemia Protocol Dextrose/Water 50 ml 06/27/22 23:52 Dextrose 50% Syringe 50 Ml IVP PER PROTOCOL PRN Hypoglycemia Protocol Heparin Sodium (Porcine) 5,000 unit 06/28/22 00:00 06/28/22 01:58 Heparin Sodium,Porcine/Pf 5,000 Unit/0.5 Ml Syringe SQ 5,000 unit Q8HR JONAS Administration Sodium Chloride 1,000 mls @ 130 mls/hr 06/27/22 23:30 06/28/22 01:59 Saline 0.9% IV 130 mls/hr .Q7H42M JONAS Administration Insulin Aspart 0 unit 06/27/22 23:45 06/28/22 04:59 Insulin Aspart (Novolog) 100 Unit/Ml Vial SQ Not Given Q4H [facility] Protocol Losartan Potassium 25 mg 06/28/22 09:00 Losartan 25 Mg Tab PO DAILY [facility] Morphine Sulfate 4 mg 06/27/22 23:49 Morphine Sulfate 4 Mg/Ml Syringe IV Q4HR PRN Severe Pain Naloxone HCl 0.2 mg 06/27/22 23:49 Naloxone 0.4 Mg/Ml 1 Ml Vial IV Q2M PRN Opioid Reversal Ondansetron HCl 4 mg 06/27/22 23:49 Ondansetron 4 Mg/2 Ml Vial IVP Q8HR PRN Nausea And Vomiting Intake and Output 06/27/22 06/28/22 06/28/22 22:59 06:59 14:59 Other: Weight 120.202 kg 120.202 kg 06/28/22 02:29 06/28/22 02:29
[2022-06-28] MEDS: atenoloL 25 MG TAB PO SCH (13:11)
[2022-06-28] MEDS: LOSARTAN 25 MG TAB PO SCH (13:12)
--- NOTE | 2022-06-28 14:42 | P.CONS ---
History of Present Illness - Reason for Consult Consult date: 06/28/22 Elevated H/H - History of Present Illness Patient was seen and evalauted by Dr. fournier and myself this am for elevated hemoglobin and hematocrit. When trending bloodwork appears to be more consistent with chronic issue, possibly hypoxia as family at bedside admits to being a marked, snorer. He states he is lifelong non-smoker. He is admitted with bowel obstruction and NG tube to [facility]. He has never had colonoscopy. Review of Systems All systems: negative Constitutional: Reports as per HPI Past Medical History Past Medical History: Diabetes Mellitus, Hypertension Additional Past Medical History / Comment(s): small bowel obst. History of Any Multi-Drug Resistant Organisms: None Reported Past Surgical History: No Surgical Hx Reported Past Psychological History: No Psychological Hx Reported Smoking Status: Never smoker Past Alcohol Use History: None Reported Past Drug Use History: None Reported - Past Family History Father Family Medical History: Diabetes Mellitus Mother Family Medical History: Diabetes Mellitus Medications and Allergies Home Medications Medication Instructions Recorded Confirmed Type Atorvastatin [Lipitor] 10 mg PO HS@199909/21/16 06/28/22 History Dapagliflozin/Metformin HCl 1 tab PO DAILY@0609/21/16 06/28/22 History [Xigduo Xr 10 mg-1,000 mg Tab] Multivit-Min/Folic/Vit K/Lycop 1 tab PO DAILY@0600 09/21/16 06/28/22 History [One-A-Day Men's 50+ Tablet] atenoloL 25 mg PO BID@599,199909/21/16 06/28/22 History Losartan [Cozaar] 25 mg PO DAILY@59905/24/19 06/28/22 History diazePAM [Valium] 2 mg PO HS@199905/24/19 06/28/22 History Acetaminophen Tab [Tylenol] 1,000 mg PO Q6H PRN 06/28/22 06/28/22 History Finerenone [Kerendia] 10 mg PO DAILY@0600 06/28/22 06/28/22 History Testosterone Cypionate 400 mg IM Q30D 06/28/22 06/28/22 History [Depo-Testosterone] diazePAM [Valium] 2 mg PO HS PRN 06/28/22 06/28/22 History Allergies Allergy/AdvReac Type Severity Reaction Status Date / Time No Known Allergies Allergy Verified 06/28/22 07:51 Physical Exam Vitals: Vital Signs Temp Pulse Pulse Resp BP BP Pulse Ox 06/28/22 12:00 98.3 F 91 16 137/87 92 L 06/28/22 08:40 98.7 F 90 16 135/81 95 06/28/22 04:15 80 18 135/77 95 06/28/22 01:30 98.8 F 88 18 147/91 94 L 06/28/22 00:25 97 140/91 97 06/27/22 23:54 95 139/84 06/27/22 22:10 106 H 149/118 06/27/22 21:32 98.1 F 124 H 18 132/84 96 Intake and Output 06/27/22 06/28/22 06/28/22 22:59 06:59 14:59 Other: Voiding Method Toilet Weight 120.202 kg 120.202 kg - Constitutional General appearance: cooperative, mild distress - EENT Eyes: EOMI ENT: NA/AT - Neck NG with brownish bile contents to LIS Neck: normal ROM - Respiratory Respiratory: bilateral: diminished - Cardiovascular Rhythm: regularly irregular - Gastrointestinal General gastrointestinal: distended, soft - Integumentary Integumentary: pale - Musculoskeletal Musculoskeletal: generalized weakness - Psychiatric Psychiatric: A&O x's 3, appropriate affect Results CBC & Chem 7: 06/28/22 02:29 06/28/22 02:29 Labs: Abnormal Lab Results - Last 24 Hours (Table) 06/27/22 06/27/22 06/27/22 Range/Units 21:50 21:50 21:50 RBC 6.31 H (4.30-5.90) m/uL Hgb 19.5 H* (13.0-17.5) gm/dL Hct 57.0 H (39.0-53.0) % Plt Count (150-450) k/uL Lymphocytes # 0.3 L (1.0-4.8) k/uL Sodium 135 L (137-145) mmol/L Creatinine 0.63 L (0.66-1.25) mg/dL Glucose 218 H (74-99) mg/dL POC Glucose (mg/dL) 215 H (70-110) mg/dL Hemoglobin A1c (0.0-6.0) % Total Bilirubin 1.7 H (0.2-1.3) mg/dL Ur Specific [place] (1.001-1.035) Urine Protein (Negative) Urine Glucose (UA) (Negative) Urine Ketones (Negative) 06/27/22 06/28/22 06/28/22 Range/Units 23:50 00:04 02:29 RBC 6.14 H (4.30-5.90) m/uL Hgb 18.6 H (13.0-17.5) gm/dL Hct 56.3 H (39.0-53.0) % Plt Count 148 L (150-450) k/uL Lymphocytes # 0.4 L (1.0-4.8) k/uL Sodium (137-145) mmol/L Creatinine (0.66-1.25) mg/dL Glucose (74-99) mg/dL POC Glucose (mg/dL) (70-110) mg/dL Hemoglobin A1c 8.3 H (0.0-6.0) % Total Bilirubin (0.2-1.3) mg/dL Ur Specific [place] >1.050 H (1.001-1.035) Urine Protein Trace H (Negative) Urine Glucose (UA) 4+ H (Negative) Urine Ketones 2+ H (Negative) 06/28/22 06/28/22 06/28/22 Range/Units 02:29 04:02 09:24 RBC (4.30-5.90) m/uL Hgb (13.0-17.5) gm/dL Hct (39.0-53.0) % Plt Count (150-450) k/uL Lymphocytes # (1.0-4.8) k/uL Sodium 134 L (137-145) mmol/L Creatinine (0.66-1.25) mg/dL Glucose 186 H (74-99) mg/dL POC Glucose (mg/dL) 171 H 179 H (70-110) mg/dL Hemoglobin A1c (0.0-6.0) % Total Bilirubin 1.4 H (0.2-1.3) mg/dL Ur Specific [place] (1.001-1.035) Urine Protein (Negative) Urine Glucose (UA) (Negative) Urine Ketones (Negative) 06/28/22 Range/Units 11:41 RBC (4.30-5.90) m/uL Hgb (13.0-17.5) gm/dL Hct (39.0-53.0) % Plt Count (150-450) k/uL Lymphocytes # (1.0-4.8) k/uL Sodium (137-145) mmol/L Creatinine (0.66-1.25) mg/dL Glucose (74-99) mg/dL POC Glucose (mg/dL) 138 H (70-110) mg/dL Hemoglobin A1c (0.0-6.0) % Total Bilirubin (0.2-1.3) mg/dL Ur Specific [place] (1.001-1.035) Urine Protein (Negative) Urine Glucose (UA) (Negative) Urine Ketones (Negative) Assessment and Plan (1) Elevated hemoglobin Narrative/Plan: 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 Murphy: I have completed the full history and physical and developed the above impression and plan, agree with dictation, dictated as a scribe
--- NOTE | 2022-06-28 14:56 | P.GSCN ---
History of Present Illness Consult date: 06/28/22 History of present illness: 52 y/o male who presented with complaints of NV and mild abdominal pain and distention. He has a vague history of a SBO which resolved on its own several years ago. He states that over the last 24 hours he has felt better. He is actively passing flatus and some small BM. He has not been vomiting overnight. He has no past abdominal surgical history. He has never had a colonoscopy. Past Medical History Past Medical History: Diabetes Mellitus, Hypertension Additional Past Medical History / Comment(s): small bowel obst. History of Any Multi-Drug Resistant Organisms: None Reported Past Surgical History: No Surgical Hx Reported Past Psychological History: No Psychological Hx Reported Smoking Status: Never smoker Past Alcohol Use History: None Reported Past Drug Use History: None Reported - Past Family History Father Family Medical History: Diabetes Mellitus Mother Family Medical History: Diabetes Mellitus Medications and Allergies Home Medications Medication Instructions Recorded Confirmed Type Atorvastatin [Lipitor] 10 mg PO HS@199909/21/16 06/28/22 History Dapagliflozin/Metformin HCl 1 tab PO DAILY@0600 09/21/16 06/28/22 History [Xigduo Xr 10 mg-1,000 mg Tab] Multivit-Min/Folic/Vit K/Lycop 1 tab PO DAILY@0600 09/21/16 06/28/22 History [One-A-Day Men's 50+ Tablet] atenoloL 25 mg PO BID@599,199909/21/16 06/28/22 History Losartan [Cozaar] 25 mg PO DAILY@59905/24/19 06/28/22 History diazePAM [Valium] 2 mg PO HS@199905/24/19 06/28/22 History Acetaminophen Tab [Tylenol] 1,000 mg PO Q6H PRN 06/28/22 06/28/22 History Finerenone [Kerendia] 10 mg PO DAILY@0600 06/28/22 06/28/22 History Testosterone Cypionate 400 mg IM Q30D 06/28/22 06/28/22 History [Depo-Testosterone] diazePAM [Valium] 2 mg PO HS PRN 06/28/22 06/28/22 History Allergies Allergy/AdvReac Type Severity Reaction Status Date / Time No Known Allergies Allergy Verified 06/28/22 07:51 Surgical - Exam Osteopathic Statement: *. No significant issues noted on an osteopathic structural exam other than those noted in the History and Physical/Consult. Vital Signs Temp Pulse Resp BP Pulse Ox 98.1 F 124 H 18 132/84 96 06/27/22 21:32 06/27/22 21:32 06/27/22 21:32 06/27/22 21:32 06/27/22 21:32 - General well developed, well nourished, no distress - Neck trachea midline - Respiratory normal expansion, normal respiratory effort - Cardiovascular Rhythm: regular - Abdomen Soft, mildly distended. Nontender - Neurologic normal coordination, normal sensation - Psychiatric oriented to time, oriented to person, oriented to place Results - Labs 06/28/22 02:29 06/28/22 02:29 Abnormal Lab Results - Last 24 Hours (Table) 06/27/22 06/27/22 06/27/22 Range/Units 21:50 21:50 21:50 RBC 6.31 H (4.30-5.90) m/uL Hgb 19.5 H* (13.0-17.5) gm/dL Hct 57.0 H (39.0-53.0) % Plt Count (150-450) k/uL Lymphocytes # 0.3 L (1.0-4.8) k/uL Sodium 135 L (137-145) mmol/L Creatinine 0.63 L (0.66-1.25) mg/dL Glucose 218 H (74-99) mg/dL POC Glucose (mg/dL) 215 H (70-110) mg/dL Hemoglobin A1c (0.0-6.0) % Total Bilirubin 1.7 H (0.2-1.3) mg/dL Ur Specific [place] (1.001-1.035) Urine Protein (Negative) Urine Glucose (UA) (Negative) Urine Ketones (Negative) 06/27/22 06/28/22 06/28/22 Range/Units 23:50 00:04 02:29 RBC 6.14 H (4.30-5.90) m/uL Hgb 18.6 H (13.0-17.5) gm/dL Hct 56.3 H (39.0-53.0) % Plt Count 148 L (150-450) k/uL Lymphocytes # 0.4 L (1.0-4.8) k/uL Sodium (137-145) mmol/L Creatinine (0.66-1.25) mg/dL Glucose (74-99) mg/dL POC Glucose (mg/dL) (70-110) mg/dL Hemoglobin A1c 8.3 H (0.0-6.0) % Total Bilirubin (0.2-1.3) mg/dL Ur Specific [place] >1.050 H (1.001-1.035) Urine Protein Trace H (Negative) Urine Glucose (UA) 4+ H (Negative) Urine Ketones 2+ H (Negative) 06/28/22 06/28/22 06/28/22 Range/Units 02:29 04:02 09:24 RBC (4.30-5.90) m/uL Hgb (13.0-17.5) gm/dL Hct (39.0-53.0) % Plt Count (150-450) k/uL Lymphocytes # (1.0-4.8) k/uL Sodium 134 L (137-145) mmol/L Creatinine (0.66-1.25) mg/dL Glucose 186 H (74-99) mg/dL POC Glucose (mg/dL) 171 H 179 H (70-110) mg/dL Hemoglobin A1c (0.0-6.0) % Total Bilirubin 1.4 H (0.2-1.3) mg/dL Ur Specific [place] (1.001-1.035) Urine Protein (Negative) Urine Glucose (UA) (Negative) Urine Ketones (Negative) 06/28/22 Range/Units 11:41 RBC (4.30-5.90) m/uL Hgb (13.0-17.5) gm/dL Hct (39.0-53.0) % Plt Count (150-450) k/uL Lymphocytes # (1.0-4.8) k/uL Sodium (137-145) mmol/L Creatinine (0.66-1.25) mg/dL Glucose (74-99) mg/dL POC Glucose (mg/dL) 138 H (70-110) mg/dL Hemoglobin A1c (0.0-6.0) % Total Bilirubin (0.2-1.3) mg/dL Ur Specific [place] (1.001-1.035) Urine Protein (Negative) Urine Glucose (UA) (Negative) Urine Ketones (Negative) Diabetes panel 06/27/22 06/28/22 06/28/22 Range/Units 21:50 00:04 02:29 Sodium 135 L 134 L (137-145) mmol/L Potassium 3.8 3.9 (3.5-5.1) mmol/L Chloride 99 101 (98-107) mmol/L Carbon Dioxide 24 23 (22-30) mmol/L BUN 16 15 (9-20) mg/dL Creatinine 0.63 L 0.72 (0.66-1.25) mg/dL Glucose 218 H 186 H (74-99) mg/dL Hemoglobin A1c 8.3 H (0.0-6.0) % Calcium 9.4 9.0 (8.4-10.2) mg/dL AST 30 41 (17-59) U/L ALT 31 35 (4-49) U/L Alkaline Phosphatase 63 60 (38-126) U/L Total Protein 7.1 6.7 (6.3-8.2) g/dL Albumin 4.5 4.1 (3.5-5.0) g/dL Calcium panel 06/27/22 06/28/22 Range/Units 21:50 02:29 Calcium 9.4 9.0 (8.4-10.2) mg/dL Albumin 4.5 4.1 (3.5-5.0) g/dL Pituitary panel 06/27/22 06/28/22 Range/Units 21:50 02:29 Sodium 135 L 134 L (137-145) mmol/L Potassium 3.8 3.9 (3.5-5.1) mmol/L Chloride 99 101 (98-107) mmol/L Carbon Dioxide 24 23 (22-30) mmol/L BUN 16 15 (9-20) mg/dL Creatinine 0.63 L 0.72 (0.66-1.25) mg/dL Glucose 218 H 186 H (74-99) mg/dL Calcium 9.4 9.0 (8.4-10.2) mg/dL Adrenal panel 06/27/22 06/28/22 Range/Units 21:50 02:29 Sodium 135 L 134 L (137-145) mmol/L Potassium 3.8 3.9 (3.5-5.1) mmol/L Chloride 99 101 (98-107) mmol/L Carbon Dioxide 24 23 (22-30) mmol/L BUN 16 15 (9-20) mg/dL Creatinine 0.63 L 0.72 (0.66-1.25) mg/dL Glucose 218 H 186 H (74-99) mg/dL Calcium 9.4 9.0 (8.4-10.2) mg/dL Total Bilirubin 1.7 H 1.4 H (0.2-1.3) mg/dL AST 30 41 (17-59) U/L ALT 31 35 (4-49) U/L Alkaline Phosphatase 63 60 (38-126) U/L Total Protein 7.1 6.7 (6.3-8.2) g/dL Albumin 4.5 4.1 (3.5-5.0) g/dL Assessment and Plan Assessment: Partial SBO vs Ileus Plan: Althought the CT was concerning for transition point patient is actively passing flatus and having BM. Clinically he does not have a complete obstruction. He is still distended however and when I saw the patient he did not have NGT in place apparently the ER was unable to get the NGT in place after multiple attempts. I placed NGT at bedside and patient had about 100cc of green output. At this time I recommend NPO and NGT. Continue to close monitor. F/U heme onc and cardiology recs.
[2022-06-28 16:08] LABS: Glucose,Whole Blood 130 mg/dL (70-110)
--- NOTE | 2022-06-28 16:19 | P.PN ---
Subjective Progress Note Date: 06/28/22 CC: Abdominal distention and pain 06/28: Mr. Lawton was seen and examined. Still with abdominal distention. + gas. Nauseous but not vomiting. NG tube in place to suction. Vitals: Reviewed General: No acute distress HEENT: Mucous membranes moist neck supple Cardiovascular: RRR, S1-S2 Lungs: Breath sounds equal and clear to auscultation bilaterally. No wheezing, rhonchi or rales Abdomen: Distended and mildly firm Extremities: No lower extremity edema Assessment and plan 1. SBO Conservative measures for now. Supportive measures with antiemetics and pain control. IV fluids. Nothing by mouth. NG tube suction. Surgery on board and recommendations appreciated. 2. Polycythemia Unclear whether primary or secondary. Need EPO check, leave to discretion of hematology is on the case whether this should be done inpatient or outpatient. Could be related to underlying DARRYL. 3. DM 2 Goal blood sugar 140-180 while in hospital. Sliding scale insulin. We will adjust accordingly. 4. Hypertension Controlled. Continue with losartan and atenolol Disposition : Anticipate hospitilization for next 48 hours Objective - Vital Signs Vital signs: Vital Signs Temp 98.3 F 06/28/22 12:00 Pulse 91 06/28/22 14:00 Resp 16 06/28/22 14:00 BP 137/87 06/28/22 12:00 Pulse Ox 92 L 06/28/22 12:00 FiO2 Intake & Output 06/27/22 06/28/22 06/28/22 18:59 06:59 18:59 Intake Total 910 Balance 910 Weight 120.202 kg Intake: IV 910 Sodium Chloride 0.9% 1, 910 000 ml @ 130 mls/hr IV . Q7H42M [facility] Rx#:[id number] Other: Voiding Method Toilet - Labs CBC & Chem 7: 06/28/22 02:29 06/28/22 02:29 Labs: Abnormal Lab Results - Last 24 Hours (Table) 06/27/22 06/27/22 06/27/22 Range/Units 21:50 21:50 21:50 RBC 6.31 H (4.30-5.90) m/uL Hgb 19.5 H* (13.0-17.5) gm/dL Hct 57.0 H (39.0-53.0) % Plt Count (150-450) k/uL Lymphocytes # 0.3 L (1.0-4.8) k/uL Sodium 135 L (137-145) mmol/L Creatinine 0.63 L (0.66-1.25) mg/dL Glucose 218 H (74-99) mg/dL POC Glucose (mg/dL) 215 H (70-110) mg/dL Hemoglobin A1c (0.0-6.0) % Total Bilirubin 1.7 H (0.2-1.3) mg/dL Ur Specific [place] (1.001-1.035) Urine Protein (Negative) Urine Glucose (UA) (Negative) Urine Ketones (Negative) 06/27/22 06/28/22 06/28/22 Range/Units 23:50 00:04 02:29 RBC 6.14 H (4.30-5.90) m/uL Hgb 18.6 H (13.0-17.5) gm/dL Hct 56.3 H (39.0-53.0) % Plt Count 148 L (150-450) k/uL Lymphocytes # 0.4 L (1.0-4.8) k/uL Sodium (137-145) mmol/L Creatinine (0.66-1.25) mg/dL Glucose (74-99) mg/dL POC Glucose (mg/dL) (70-110) mg/dL Hemoglobin A1c 8.3 H (0.0-6.0) % Total Bilirubin (0.2-1.3) mg/dL Ur Specific [place] >1.050 H (1.001-1.035) Urine Protein Trace H (Negative) Urine Glucose (UA) 4+ H (Negative) Urine Ketones 2+ H (Negative) 06/28/22 06/28/22 06/28/22 Range/Units 02:29 04:02 09:24 RBC (4.30-5.90) m/uL Hgb (13.0-17.5) gm/dL Hct (39.0-53.0) % Plt Count (150-450) k/uL Lymphocytes # (1.0-4.8) k/uL Sodium 134 L (137-145) mmol/L Creatinine (0.66-1.25) mg/dL Glucose 186 H (74-99) mg/dL POC Glucose (mg/dL) 171 H 179 H (70-110) mg/dL Hemoglobin A1c (0.0-6.0) % Total Bilirubin 1.4 H (0.2-1.3) mg/dL Ur Specific [place] (1.001-1.035) Urine Protein (Negative) Urine Glucose (UA) (Negative) Urine Ketones (Negative) 06/28/22 06/28/22 Range/Units 11:41 16:06 RBC (4.30-5.90) m/uL Hgb (13.0-17.5) gm/dL Hct (39.0-53.0) % Plt Count (150-450) k/uL Lymphocytes # (1.0-4.8) k/uL Sodium (137-145) mmol/L Creatinine (0.66-1.25) mg/dL Glucose (74-99) mg/dL POC Glucose (mg/dL) 138 H 130 H (70-110) mg/dL Hemoglobin A1c (0.0-6.0) % Total Bilirubin (0.2-1.3) mg/dL Ur Specific [place] (1.001-1.035) Urine Protein (Negative) Urine Glucose (UA) (Negative) Urine Ketones (Negative)
--- NOTE | 2022-06-28 17:08 | CA ---
Transthoracic Echo Report Name: Mal Lawton Age: 52 Gender: M : 1970 Exam Date: 06/28/2022 11:49 Exam Location: [facility] Ht (in): 72 Wt (lb): 265 Ordering Physician: Susanne Gasca Attending/Referring Phys: [id number], [facility] Surgical Tech Katina Roque, RDGILBERT Procedure CPT: Indications: LV function Cardiac Hx: Technical Quality: Fair Contrast 1: Total Dose (mL): Contrast 2: Total Dose (mL): MEASUREMENTS (Male / Female) Normal Values 2D ECHO LV Diastolic Diameter PLAX 5.3 cm 4.2 - 5.9 / 3.9 - 5.3 cm LV Systolic Diameter PLAX 3.6 cm IVS Diastolic Thickness 1.6 cm 0.6 - 1.0 / 0.6 - 0.9 cm LVPW Diastolic Thickness 1.5 cm 0.6 - 1.0 / 0.6 - 0.9 cm LV Relative Wall Thickness 0.6 RV Internal Dim ED PLAX 3.5 cm LA Systolic Diameter LX 3.7 cm 3.0 - 4.0 / 2.7 - 3.8 cm LA Volume 68.3 cm??? 18 - 58 / 22 - 52 cm??? M-MODE Aortic Root Diameter MM 4.0 cm MV E Point Septal Separation 0.8 cm AV Cusp Separation MM 2.7 cm DOPPLER AV Peak Velocity 125.8 cm/s AV Peak Gradient 6.3 mmHg MV Area PHT 2.1 cm??? Mitral E Point Velocity 74.8 cm/s Mitral A Point Velocity 92.5 cm/s Mitral E to A Ratio 0.8 MV Deceleration Time 360.1 ms MV E' Velocity 5.4 cm/s Mitral E to MV E' Ratio 13.9 TR Peak Velocity 231.9 cm/s TR Peak Gradient 21.5 mmHg Right Ventricular Systolic Press 26.5 mmHg FINDINGS Left Ventricle Left ventricular ejection fraction is estimated at 60-65 %. Left ventricular cavity size normal. Moderate concentric left ventricular hypertrophy Right Ventricle Mild right ventricular dilatation. Right ventricular systolic pressure within normal limits. Right Atrium Normal right atrial size. Left Atrium Mildly increased left atrial volume. No evidence for an atrial septal defect. Mitral Valve Structurally normal mitral valve. No mitral stenosis, regurgitation or prolapse. Aortic Valve Trileaflet aortic valve. No aortic valve stenosis or regurgitation. Tricuspid Valve Mild tricuspid regurgitation. Pulmonic Valve Pulmonic valve not well visualized. Pericardium Normal pericardium. No pericardial effusion. Aorta Moderate aortic dilatation at the level of the sinuses of valsalva 40 mm CONCLUSIONS Left ventricular systolic function is normal mildly dilated right ventricle mild tricuspid regurgitation dilated aortic root measuring 4 cm at the sinus of Valsalva Previewed by: Dr. Raman Gonzalez MD (Electronically Signed) Final Date: 28 June 2022 17:07
[2022-06-28 19:59] LABS: Glucose,Whole Blood 126 mg/dL (70-110)
[2022-06-28 23:49] LABS: Glucose,Whole Blood 133 mg/dL (70-110)
[2022-06-29] MEDS: INSULIN ASPART (NovoLOG) 100 UNIT/ML VIAL SQ SCH ×7 (00:41→23:07)
[2022-06-29] MEDS: HEPARIN SODIUM,PORCINE/PF 5,000 UNIT/0.5 ML SYRINGE SQ SCH ×4 (00:50→23:07)
[2022-06-29 03:58] LABS: Glucose,Whole Blood 112 mg/dL (70-110)
[2022-06-29] MEDS: SODIUM CHLORIDE 0.9% 1,000 ML IV SCH ×3 (06:56→20:46)
[2022-06-29 08:13] LABS: Glucose,Whole Blood 136 mg/dL (70-110)
[2022-06-29 08:14] LABS: Basophils # (A) 0.1 k/uL (0-0.2); Basophils % (A) 1 %; Eosinophils % (A) 0 %; HCT 52.8 % (39.0-53.0); HGB 17.6 gm/dL (13.0-17.5); Lymphocytes # (A) 0.5 k/uL (1.0-4.8); Lymphocytes % (A) 9 %; MCH 30.5 pg (25.0-35.0); MCHC 33.3 g/dL (31.0-37.0); MCV 91.6 fL (80.0-100.0); Mean Platelet Volume 8.5; Monocytes # (A) 0.8 k/uL (0-1.0); Monocytes % (A) 14 %; Neutrophils # (A) 4.2 k/uL (1.3-7.7); Neutrophils % (A) 75 %; Platelet Count 145 k/uL (150-450); RBC 5.76 m/uL (4.30-5.90); RDW 13.3 % (11.5-15.5); WBC 5.7 k/uL (3.8-10.6)
[2022-06-29] MEDS: LOSARTAN 25 MG TAB PO SCH ×2 (08:27→10:59)
[2022-06-29] MEDS: atenoloL 25 MG TAB PO SCH ×2 (08:27→10:59)
[2022-06-29 08:39] LABS: African American GFR (CKD) >90 (>60 ml/min/1.73 sqM); Anion Gap 12 mmol/L; Blood Urea Nitrogen 13 mg/dL (9-20); Calcium 8.5 mg/dL (8.4-10.2); Carbon Dioxide 21 mmol/L (22-30); Chloride 107 mmol/L (98-107); Glucose 144 mg/dL (74-99); Non-African American GFR(CKD) >90 (>60 ml/min/1.73 sqM); Potassium 3.6 mmol/L (3.5-5.1); Sodium 140 mmol/L (137-145)
[2022-06-29 11:29] LABS: % Iron Saturation 14.22 (15.00-50.00); Iron 42 ug/dL (65-175); Rheumatoid Factor, Qnt <10 IU/mL (0-15); Total Iron Binding Capacity 295 ug/dL (228-460)
[2022-06-29 12:01] LABS: Glucose,Whole Blood 129 mg/dL (70-110)
--- NOTE | 2022-06-29 12:38 | P.PN ---
Subjective Progress Note Date: 06/29/22 HISTORY OF PRESENT ILLNESS: This is a 52 year old male with a past medical history significant for hypertension, hyperlipidemia, and diabetes. 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 We have been asked to see the patient in consultation for abnormal EKG. Patient examined at the bedside. Patient presented to emergency room with a chief complaint of abdominal pain. Patient was found to have bowel obstruction and had an NG tube inserted. General surgery has been consulted for evaluation. The patient denies any chest pain or pressure. He denies any shortness of breath. He denies any previous cardiac workup including a stress test or cardiac catheterization. Patient's vital signs are stable. * EKG reveals sinus tachycardia with left bundle branch block. Telemetry re veals sinus mechanism with left bundle-branch block. * Laboratory data: WBC 4.7. Hemoglobin 18.6. Platelet count 148. Sodium 134. Potassium 3.9. BUN 15. Creatinine 0.72. Troponin negative 3 * Current home cardiac medications include Lipitor 10 mg at night, Cozaar 25 mg daily, atenolol 25 mg twice a day 06/29/2022 Patient seen and examined this morning at the bedside. Patient denies chest esequiel n or pressure. He denies shortness of breath. He continues to have an NG tube to low intermittent suction. The patient reports he is passing a lot of flatus today. Patient's blood pressure is elevated with a systolic in the 140s to 150s. However the patient has not received his blood pressure medication secondary to his nothing by mouth status. Echo cardiac echocardiogram completed revealing ejection fraction 60-65%. PHYSICAL EXAM: VITAL SIGNS: Reviewed. GENERAL: Well-developed in no acute distress. HEENT: Head is normocephalic. Pupils are equal, round. Sclerae anicteric. Mucous membranes of the mouth are moist. Neck supple. No JVD or thyromegaly LUNGS: Respirations even and unlabored. Lungs essentially clear to auscultation bilaterally. HEART: Regular rate and rhythm. S1 and S2 heard. ABDOMEN: Soft. Nondistended. Nontender. EXTREMITIES: Normal range of motion. No clubbing or cyanosis. Peripheral pulses intact. No lower extremity edema NEUROLOGIC: Awake and alert. Oriented x 3. ASSESSMENT: Abdominal pain Small bowel obstruction Abnormal EKG revealing left bundle branch block, appears new compared to old EKG Hypertension Hyperlipidemia Diabetes PLAN: Continue current cardiac medications. Please give cardiac medications and then clamp NG tube for 1 hour. Gen. surgery consulted. Await further recommendations Patient is currently stable from a cardiac perspective. However when his acute issues resolve he will require further cardiac workup on an outpatient basis. Further recommendations pending patient's course Nurse practitioner note has been reviewed by physician. Signing provider agrees with the documented findings, assessment, and plan of care. Objective - Vital Signs Vital signs: Vital Signs Temp 97.1 F L 06/29/22 08:00 Pulse 100 06/29/22 08:00 Resp 14 06/29/22 08:00 BP 143/85 06/29/22 08:00 Pulse Ox 92 L 06/29/22 08:00 FiO2 Intake & Output 06/28/22 06/29/22 06/29/22 18:59 06:59 18:59 Intake Total 910 10 Output Total 825 1425 Balance 85 -1415 Intake: IV 910 10 Invasive Line 2 10 Sodium Chloride 0.9% 1, 910 000 ml @ 130 mls/hr IV . Q7H42M [facility] Rx#:[id number] Output: Gastric Drainage 325 850 Urine 500 575 Other: Voiding Method Toilet Toilet Toilet Urinal Urinal - Labs CBC & Chem 7: 06/29/22 08:04 06/29/22 08:04 Labs: Abnormal Lab Results - Last 24 Hours (Table) 06/28/22 06/28/22 06/28/22 Range/Units 15:05 15:05 16:06 Hgb (13.0-17.5) gm/dL Plt Count (150-450) k/uL Lymphocytes # (1.0-4.8) k/uL Carbon Dioxide (22-30) mmol/L Creatinine (0.66-1.25) mg/dL Glucose (74-99) mg/dL POC Glucose (mg/dL) 130 H (70-110) mg/dL Iron 42 L 42 L (65-175) ug/dL % Saturation 14.22 L (15.00-50.00) Ferritin 433.0 H (22.0-322.0) ng/mL 06/28/22 06/28/22 06/29/22 Range/Units 19:56 23:46 03:56 Hgb (13.0-17.5) gm/dL Plt Count (150-450) k/uL Lymphocytes # (1.0-4.8) k/uL Carbon Dioxide (22-30) mmol/L Creatinine (0.66-1.25) mg/dL Glucose (74-99) mg/dL POC Glucose (mg/dL) 126 H 133 H 112 H (70-110) mg/dL Iron (65-175) ug/dL % Saturation (15.00-50.00) Ferritin (22.0-322.0) ng/mL 06/29/22 06/29/22 06/29/22 Range/Units 08:02 08:04 08:04 Hgb 17.6 H (13.0-17.5) gm/dL Plt Count 145 L (150-450) k/uL Lymphocytes # 0.5 L (1.0-4.8) k/uL Carbon Dioxide 21 L (22-30) mmol/L Creatinine 0.58 L (0.66-1.25) mg/dL Glucose 144 H (74-99) mg/dL POC Glucose (mg/dL) 136 H (70-110) mg/dL Iron (65-175) ug/dL % Saturation (15.00-50.00) Ferritin (22.0-322.0) ng/mL 06/29/22 Range/Units 12:00 Hgb (13.0-17.5) gm/dL Plt Count (150-450) k/uL Lymphocytes # (1.0-4.8) k/uL Carbon Dioxide (22-30) mmol/L Creatinine (0.66-1.25) mg/dL Glucose (74-99) mg/dL POC Glucose (mg/dL) 129 H (70-110) mg/dL Iron (65-175) ug/dL % Saturation (15.00-50.00) Ferritin (22.0-322.0) ng/mL
--- NOTE | 2022-06-29 13:26 | P.PN ---
Subjective Progress Note Date: 06/29/22 Patient had a large amount of flatus this AM. no BM Objective - Vital Signs Vital signs: Vital Signs Temp 98.4 F 06/29/22 12:00 Pulse 100 06/29/22 12:00 Resp 14 06/29/22 12:00 BP 148/87 06/29/22 12:00 Pulse Ox 93 L 06/29/22 12:00 FiO2 Intake & Output 06/28/22 06/29/22 06/29/22 18:59 06:59 18:59 Intake Total 910 10 Output Total 825 1425 Balance 85 -1415 Intake: IV 910 10 Invasive Line 2 10 Sodium Chloride 0.9% 1, 910 000 ml @ 130 mls/hr IV . Q7H42M [facility] Rx#:[id number] Output: Gastric Drainage 325 850 Urine 500 575 Other: Voiding Method Toilet Toilet Toilet Urinal Urinal - Constitutional General appearance: Present: cooperative - Respiratory Details: Nonlabored - Cardiovascular Rhythm: regular - Gastrointestinal Gastrointestinal Comment(s): S/NT mild distention - Psychiatric Psychiatric: Present: A&O x's 3 - Labs CBC & Chem 7: 06/29/22 08:04 06/29/22 08:04 Labs: Abnormal Lab Results - Last 24 Hours (Table) 06/28/22 06/28/22 06/28/22 Range/Units 15:05 15:05 16:06 Hgb (13.0-17.5) gm/dL Plt Count (150-450) k/uL Lymphocytes # (1.0-4.8) k/uL Carbon Dioxide (22-30) mmol/L Creatinine (0.66-1.25) mg/dL Glucose (74-99) mg/dL POC Glucose (mg/dL) 130 H (70-110) mg/dL Iron 42 L 42 L (65-175) ug/dL % Saturation 14.22 L (15.00-50.00) Ferritin 433.0 H (22.0-322.0) ng/mL 06/28/22 06/28/22 06/29/22 Range/Units 19:56 23:46 03:56 Hgb (13.0-17.5) gm/dL Plt Count (150-450) k/uL Lymphocytes # (1.0-4.8) k/uL Carbon Dioxide (22-30) mmol/L Creatinine (0.66-1.25) mg/dL Glucose (74-99) mg/dL POC Glucose (mg/dL) 126 H 133 H 112 H (70-110) mg/dL Iron (65-175) ug/dL % Saturation (15.00-50.00) Ferritin (22.0-322.0) ng/mL 06/29/22 06/29/22 06/29/22 Range/Units 08:02 08:04 08:04 Hgb 17.6 H (13.0-17.5) gm/dL Plt Count 145 L (150-450) k/uL Lymphocytes # 0.5 L (1.0-4.8) k/uL Carbon Dioxide 21 L (22-30) mmol/L Creatinine 0.58 L (0.66-1.25) mg/dL Glucose 144 H (74-99) mg/dL POC Glucose (mg/dL) 136 H (70-110) mg/dL Iron (65-175) ug/dL % Saturation (15.00-50.00) Ferritin (22.0-322.0) ng/mL 06/29/22 Range/Units 12:00 Hgb (13.0-17.5) gm/dL Plt Count (150-450) k/uL Lymphocytes # (1.0-4.8) k/uL Carbon Dioxide (22-30) mmol/L Creatinine (0.66-1.25) mg/dL Glucose (74-99) mg/dL POC Glucose (mg/dL) 129 H (70-110) mg/dL Iron (65-175) ug/dL % Saturation (15.00-50.00) Ferritin (22.0-322.0) ng/mL Assessment and Plan Assessment: Partial SBO vs Ileus Plan: Patient did have flatus no BM yet, if he does not have good BM by tomorrow will consider small bowel series to further evaluate
--- NOTE | 2022-06-29 14:26 | P.PN ---
Subjective Progress Note Date: 06/29/22 Principal diagnosis: Small bowel obstruction Patient is still having significant output from his NG tube. He states that he is passing gas however has not had a bowel movement. Patient is hoping his NG tube can come on soon so that he can start to eat. Objective - Vital Signs Vital signs: Vital Signs Temp 98.4 F 06/29/22 12:00 Pulse 100 06/29/22 12:00 Resp 14 06/29/22 12:00 BP 148/87 06/29/22 12:00 Pulse Ox 93 L 06/29/22 12:00 FiO2 Intake & Output 06/28/22 06/29/22 06/29/22 18:59 06:59 18:59 Intake Total 910 10 Output Total 825 1425 Balance 85 -1415 Intake: IV 910 10 Invasive Line 2 10 Sodium Chloride 0.9% 1, 910 000 ml @ 130 mls/hr IV . Q7H42M [facility] Rx#:[id number] Output: Gastric Drainage 325 850 Urine 500 575 Other: Voiding Method Toilet Toilet Toilet Urinal Urinal - Exam General examination - Alert and Oriented 3 in NAD Heart - + S1S2 no murmurs Lungs - Clear to auscultation Abdomen distended, diminished bowel sounds, + NG tube Extremities - No edema OTA - Moving all 4 extremities spontaneously Psych - Calm and cooperative - Labs CBC & Chem 7: 06/29/22 08:04 06/29/22 08:04 Labs: Abnormal Lab Results - Last 24 Hours (Table) 06/28/22 06/28/22 06/28/22 Range/Units 15:05 15:05 16:06 Hgb (13.0-17.5) gm/dL Plt Count (150-450) k/uL Lymphocytes # (1.0-4.8) k/uL Carbon Dioxide (22-30) mmol/L Creatinine (0.66-1.25) mg/dL Glucose (74-99) mg/dL POC Glucose (mg/dL) 130 H (70-110) mg/dL Iron 42 L 42 L (65-175) ug/dL % Saturation 14.22 L (15.00-50.00) Ferritin 433.0 H (22.0-322.0) ng/mL 06/28/22 06/28/22 06/29/22 Range/Units 19:56 23:46 03:56 Hgb (13.0-17.5) gm/dL Plt Count (150-450) k/uL Lymphocytes # (1.0-4.8) k/uL Carbon Dioxide (22-30) mmol/L Creatinine (0.66-1.25) mg/dL Glucose (74-99) mg/dL POC Glucose (mg/dL) 126 H 133 H 112 H (70-110) mg/dL Iron (65-175) ug/dL % Saturation (15.00-50.00) Ferritin (22.0-322.0) ng/mL 06/29/22 06/29/22 06/29/22 Range/Units 08:02 08:04 08:04 Hgb 17.6 H (13.0-17.5) gm/dL Plt Count 145 L (150-450) k/uL Lymphocytes # 0.5 L (1.0-4.8) k/uL Carbon Dioxide 21 L (22-30) mmol/L Creatinine 0.58 L (0.66-1.25) mg/dL Glucose 144 H (74-99) mg/dL POC Glucose (mg/dL) 136 H (70-110) mg/dL Iron (65-175) ug/dL % Saturation (15.00-50.00) Ferritin (22.0-322.0) ng/mL 06/29/22 Range/Units 12:00 Hgb (13.0-17.5) gm/dL Plt Count (150-450) k/uL Lymphocytes # (1.0-4.8) k/uL Carbon Dioxide (22-30) mmol/L Creatinine (0.66-1.25) mg/dL Glucose (74-99) mg/dL POC Glucose (mg/dL) 129 H (70-110) mg/dL Iron (65-175) ug/dL % Saturation (15.00-50.00) Ferritin (22.0-322.0) ng/mL Assessment and Plan Assessment: 1. SBO Conservative measures for now. Supportive measures with antiemetics and pain control. IV fluids. Nothing by mouth. NG tube suction. Surgery on board and recommendations appreciated. Patient still continued to have high output from his NG tube. He is passing gas but no bowel movement. 2. Polycythemia Likely due to obstructive sleep apnea Plan hematology no intervention at this time. We'll have patient follow-up with hematology outpatient. 3. DM 2 Goal blood sugar 140-180 while in hospital. Sliding scale insulin. We will adjust accordingly. 4. Hypertension Controlled. Continue with losartan and atenolol Disposition : Anticipate hospitilization for next 48 hours
[2022-06-29 16:19] LABS: Glucose,Whole Blood 122 mg/dL (70-110)
[2022-06-29 20:19] LABS: Glucose,Whole Blood 124 mg/dL (70-110)
[2022-06-29 23:57] LABS: Glucose,Whole Blood 115 mg/dL (70-110)
[2022-06-30] MEDS: SODIUM CHLORIDE 0.9% 1,000 ML IV SCH ×3 (04:00→22:00)
[2022-06-30 04:05] LABS: Glucose,Whole Blood 109 mg/dL (70-110)
[2022-06-30] MEDS: INSULIN ASPART (NovoLOG) 100 UNIT/ML VIAL SQ SCH ×4 (04:06→20:18)
[2022-06-30 08:31] LABS: Glucose,Whole Blood 114 mg/dL (70-110)
[2022-06-30] MEDS: LOSARTAN 25 MG TAB PO SCH (09:09)
[2022-06-30] MEDS: HEPARIN SODIUM,PORCINE/PF 5,000 UNIT/0.5 ML SYRINGE SQ SCH ×2 (09:09→16:44)
[2022-06-30] MEDS: atenoloL 25 MG TAB PO SCH (09:09)
[2022-06-30 10:36] LABS: African American GFR (CKD) >90 (>60 ml/min/1.73 sqM); Anion Gap 17 mmol/L; Blood Urea Nitrogen 15 mg/dL (9-20); Calcium 8.9 mg/dL (8.4-10.2); Carbon Dioxide 26 mmol/L (22-30); Chloride 101 mmol/L (98-107); Glucose 125 mg/dL (74-99); Magnesium 1.9 mg/dL (1.6-2.3); Non-African American GFR(CKD) >90 (>60 ml/min/1.73 sqM); Potassium 3.5 mmol/L (3.5-5.1); Sodium 144 mmol/L (137-145)
--- NOTE | 2022-06-30 11:31 | P.PN ---
Subjective Progress Note Date: 06/30/22 Patient is still passing gas but having significant output from NGT Objective - Vital Signs Vital signs: Vital Signs Temp 98.2 F 06/30/22 09:18 Pulse 81 06/30/22 09:20 Resp 16 06/30/22 09:20 BP 153/88 06/30/22 09:18 Pulse Ox 95 06/30/22 09:18 FiO2 Intake & Output 06/29/22 06/30/22 06/30/22 18:59 06:59 18:59 Intake Total 1040 Output Total 1800 2000 300 Balance -760 -2000 -300 Intake: IV 1040 Sodium Chloride 0.9% 1, 1040 000 ml @ 130 mls/hr IV . Q7H42M [facility] Rx#:[id number] Output: Gastric Drainage 1100 Urine 1800 900 300 Other: Voiding Method Toilet Toilet Toilet Urinal Urinal Urinal - Constitutional General appearance: Present: cooperative - Cardiovascular Rhythm: regular - Gastrointestinal Gastrointestinal Comment(s): S/NT/distended - Psychiatric Psychiatric: Present: A&O x's 3 - Labs CBC & Chem 7: 06/29/22 08:04 06/30/22 09:41 Labs: Abnormal Lab Results - Last 24 Hours (Table) 06/28/22 06/29/22 06/29/22 Range/Units 15:05 12:00 16:17 Creatinine (0.66-1.25) mg/dL Glucose (74-99) mg/dL POC Glucose (mg/dL) 129 H 122 H (70-110) mg/dL Iron 42 L (65-175) ug/dL % Saturation 14.22 L (15.00-50.00) Ferritin 433.0 H (22.0-322.0) ng/mL 06/29/22 06/29/22 06/30/22 Range/Units 20:18 23:56 08:29 Creatinine (0.66-1.25) mg/dL Glucose (74-99) mg/dL POC Glucose (mg/dL) 124 H 115 H 114 H (70-110) mg/dL Iron (65-175) ug/dL % Saturation (15.00-50.00) Ferritin (22.0-322.0) ng/mL 06/30/22 Range/Units 09:41 Creatinine 0.60 L (0.66-1.25) mg/dL Glucose 125 H (74-99) mg/dL POC Glucose (mg/dL) (70-110) mg/dL Iron (65-175) ug/dL % Saturation (15.00-50.00) Ferritin (22.0-322.0) ng/mL Assessment and Plan Assessment: Partial SBO vs Ileus Plan: Patient is still passing gas but no BM, he is having output from NGT still and is distended. I recommend small bowel follow through at this time to further evaluate nature of his SBO. If there is complete obstruction will plan on OR tomorrow for exploratory laparotomy. Further recs to follow
--- NOTE | 2022-06-30 12:07 | P.PN ---
Subjective Progress Note Date: 06/30/22 HISTORY OF PRESENT ILLNESS: This is a 52 year old male with a past medical history significant for hypertension, hyperlipidemia, and diabetes. 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 We have been asked to see the patient in consultation for abnormal EKG. Patient examined at the bedside. Patient presented to emergency room with a chief complaint of abdominal pain. Patient was found to have bowel obstruction and had an NG tube inserted. General surgery has been consulted for evaluation. The patient denies any chest pain or pressure. He denies any shortness of breath. He denies any previous cardiac workup including a stress test or cardiac catheterization. Patient's vital signs are stable. * EKG reveals sinus tachycardia with left bundle branch block. Telemetry re veals sinus mechanism with left bundle-branch block. * Laboratory data: WBC 4.7. Hemoglobin 18.6. Platelet count 148. Sodium 134. Potassium 3.9. BUN 15. Creatinine 0.72. Troponin negative 3 * Current home cardiac medications include Lipitor 10 mg at night, Cozaar 25 mg daily, atenolol 25 mg twice a day 06/29/2022 Patient seen and examined this morning at the bedside. Patient denies chest esequiel n or pressure. He denies shortness of breath. He continues to have an NG tube to low intermittent suction. The patient reports he is passing a lot of flatus today. Patient's blood pressure is elevated with a systolic in the 140s to 150s. However the patient has not received his blood pressure medication secondary to his nothing by mouth status. Echo cardiac echocardiogram completed revealing ejection fraction 60-65%. 06/30/2022 Patient examined this morning at the bedside. Patient denies chest pain or pressure. He denies shortness of breath. He reports passing flatus but denies having any bowel movements. He continues to have an NG tube to low intermittent suction. Blood pressure 153/88. PHYSICAL EXAM: VITAL SIGNS: Reviewed. GENERAL: Well-developed in no acute distress. HEENT: Head is normocephalic. Pupils are equal, round. Sclerae anicteric. Mucous membranes of the mouth are moist. Neck supple. No JVD or thyromegaly LUNGS: Respirations even and unlabored. Lungs essentially clear to auscultation bilaterally. HEART: Regular rate and rhythm. S1 and S2 heard. ABDOMEN: Soft. Nondistended. Nontender. EXTREMITIES: Normal range of motion. No clubbing or cyanosis. Peripheral pulses intact. No lower extremity edema NEUROLOGIC: Awake and alert. Oriented x 3. ASSESSMENT: Abdominal pain Small bowel obstruction Abnormal EKG revealing left bundle branch block, appears new compared to old EKG Hypertension Hyperlipidemia Diabetes PLAN: Continue current cardiac medications. Please give cardiac medications and then clamp NG tube for 1 hour. Gen. surgery consulted. Plan for small bowel follow-through ordered. If complete obstruction, plan is for exploratory laparotomy tomorrow. Patient is currently stable from a cardiac perspective. However when his acute issues resolve he will require further cardiac workup on an outpatient basis. Further recommendations pending patient's course Nurse practitioner note has been reviewed by physician. Signing provider agrees with the documented findings, assessment, and plan of care. Objective - Vital Signs Vital signs: Vital Signs Temp 98.0 F 06/30/22 12:00 Pulse 77 06/30/22 12:00 Resp 18 06/30/22 12:00 BP 159/88 06/30/22 12:00 Pulse Ox 93 L 06/30/22 12:00 FiO2 Intake & Output 06/29/22 06/30/22 06/30/22 18:59 06:59 18:59 Intake Total 1040 Output Total 1800 2000 300 Balance -760 -2000 -300 Intake: IV 1040 Sodium Chloride 0.9% 1, 1040 000 ml @ 130 mls/hr IV . Q7H42M [facility] Rx#:[id number] Output: Gastric Drainage 1100 Urine 1800 900 300 Other: Voiding Method Toilet Toilet Toilet Urinal Urinal Urinal - Labs CBC & Chem 7: 06/29/22 08:04 06/30/22 09:41 Labs: Abnormal Lab Results - Last 24 Hours (Table) 06/29/22 06/29/22 06/29/22 Range/Units 16:17 20:18 23:56 Creatinine (0.66-1.25) mg/dL Glucose (74-99) mg/dL POC Glucose (mg/dL) 122 H 124 H 115 H (70-110) mg/dL 06/30/22 06/30/22 Range/Units 08:29 09:41 Creatinine 0.60 L (0.66-1.25) mg/dL Glucose 125 H (74-99) mg/dL POC Glucose (mg/dL) 114 H (70-110) mg/dL
--- NOTE | 2022-06-30 13:23 | P.PN ---
Subjective Progress Note Date: 06/30/22 Principal diagnosis: Small bowel obstruction Patient states that his abdomen is still distended and he still hasn't had any bowel movement. Objective - Vital Signs Vital signs: Vital Signs Temp 98.0 F 06/30/22 12:00 Pulse 77 06/30/22 12:00 Resp 18 06/30/22 12:00 BP 159/88 06/30/22 12:00 Pulse Ox 93 L 06/30/22 12:00 FiO2 Intake & Output 06/29/22 06/30/22 06/30/22 18:59 06:59 18:59 Intake Total 1040 Output Total 1800 2000 300 Balance -760 -2000 -300 Intake: IV 1040 Sodium Chloride 0.9% 1, 1040 000 ml @ 130 mls/hr IV . 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 SBO Conservative measures for now. Supportive measures with antiemetics and pain co ntrol. IV fluids. Nothing by mouth. NG tube suction. Surgery on board and recommendations appreciated. Patient still continued to have high output from his NG tube. He is passing gas but no bowel movement. Small bowel series results pending. If it shows complete obstruction surgery plans on doing surgery. 2. Polycythemia Likely due to obstructive sleep apnea Per hematology no intervention at this time. We'll have patient follow-up with hematology outpatient. 3. DM 2 Goal blood sugar 140-180 while in hospital. Sliding scale insulin. We will adjust accordingly. 4. Hypertension Controlled. Continue with losartan and atenolol Disposition : Anticipate hospitilization for next 48 hours
[2022-06-30 14:11] LABS: Glucose,Whole Blood 138 mg/dL (70-110)
[2022-06-30 16:39] LABS: Glucose,Whole Blood 147 mg/dL (70-110)
--- NOTE | 2022-06-30 16:45 | FL ---
EXAMINATION TYPE: FL small bowel follow through DATE OF EXAM: 06/30/2022 4:29 PM COMPARISON: CT abdomen pelvis most recent from 06/27/2022. INDICATION: Patient age:Male; 52 years old; Reason for study: Further evaluate for SBO; TECHNIQUE: The procedure was explained and patient history elicited. All patient questions were ans wered prior to start of procedure. A principal java software engineer radiograph of the abdomen was also reviewed. The patient was asked to ingest liquid Gastrografin and incremental frontal abdominal radiographs were then taken until contrast was visualized in the cecum. Radiographs taken: 9 FINDINGS: The principal java software engineer abdominal radiograph demonstrates multiple dilated small bowel loops throughout the abdomen measuring 7.4 cm in the right lower quadrant. There is no evidence of organomegaly or pneumoperitoneum. No abnormal calcifications. The visualized osseous structures are intact. Nasogastric tube is in place. Contrast is seen extending from the duodenojejunal junction into the rectum at 225 minutes , which is delayed. The small bowel follows demonstrates stacking throughout the abdomen. No evidence of extral uminal or intraluminal irregularity. Small bowel mucosal folds are felt to be within normal limits. IMPRESSION: Oral contrast seen within the rectum at 225 minutes suggesting at least partial patency of the bowel and/or ileus.
[2022-06-30 20:02] LABS: Glucose,Whole Blood 131 mg/dL (70-110)
--- NOTE | 2022-06-30 21:31 | P.PN ---
Subjective Progress Note Date: 06/30/22 Hemoglobin and hematocrit decreased Objective - Vital Signs Vital signs: Vital Signs Temp 98.0 F 06/30/22 12:00 Pulse 77 06/30/22 12:00 Resp 18 06/30/22 12:00 BP 159/88 06/30/22 12:00 Pulse Ox 93 L 06/30/22 12:00 FiO2 Intake & Output 06/29/22 06/30/22 06/30/22 18:59 06:59 18:59 Intake Total 1040 Output Total 1800 1999 300 Balance -760 -2000 -300 Intake: IV 1040 Sodium Chloride 0.9% 1, 1040 000 ml @ 130 mls/hr IV . Q7H42M [facility] Rx#:[id number] Output: Gastric Drainage 1100 Urine 1800 900 300 Other: Voiding Method Toilet Toilet Toilet Urinal Urinal Urinal - Exam - Constitutional General appearance: cooperative, mild distress - EENT Eyes: EOMI ENT: NA/AT - Neck NG with brownish bile contents to LIS Neck: normal ROM - Respiratory Respiratory: bilateral: diminished - Cardiovascular Rhythm: regularly irregular - Gastrointestinal General gastrointestinal: distended, soft - Integumentary Integumentary: pale - Musculoskeletal Musculoskeletal: generalized weakness - Psychiatric Psychiatric: A&O x's 3, appropriate affect - Labs CBC & Chem 7: 06/29/22 08:04 06/30/22 09:41 Labs: Abnormal Lab Results - Last 24 Hours (Table) 06/29/22 06/29/22 06/29/22 Range/Units 16:17 20:18 23:56 Creatinine (0.66-1.25) mg/dL Glucose (74-99) mg/dL POC Glucose (mg/dL) 122 H 124 H 115 H (70-110) mg/dL 06/30/22 06/30/22 Range/Units 08:29 09:41 Creatinine 0.60 L (0.66-1.25) mg/dL Glucose 125 H (74-99) mg/dL POC Glucose (mg/dL) 114 H (70-110) mg/dL Assessment and Plan (1) Elevated hemoglobin Narrative/Plan: Initial work-up placed Bronson to be halfway hypoxia and chronic condition per trend No acute phlebotomy warranted in acute picture Improved on yesterday labs Current Visit: Yes Status: Acute Code(s): D58.2 - OTHER HEMOGLOBINOPATHIES SNOMED Code(s): 696539363 (2) Small bowel obstruction Narrative/Plan: per team and specialities Current Visit: Yes Status: Acute Code(s): K56.609 - UNSP INTESTNL OBST, UNSP TO PARTIAL VERSUS COMPLETE OBST SNOMED Code(s): 498150893 Plan: Erythropotin and AI work0-up neg this far
[2022-07-01 00:05] LABS: Glucose,Whole Blood 143 mg/dL (70-110)
[2022-07-01] MEDS: INSULIN ASPART (NovoLOG) 100 UNIT/ML VIAL SQ SCH ×5 (01:35→18:18)
[2022-07-01] MEDS: HEPARIN SODIUM,PORCINE/PF 5,000 UNIT/0.5 ML SYRINGE SQ SCH ×3 (01:35→17:52)
[2022-07-01 03:47] LABS: Glucose,Whole Blood 139 mg/dL (70-110)
[2022-07-01] MEDS: SODIUM CHLORIDE 0.9% 1,000 ML IV SCH ×2 (05:48→17:51)
[2022-07-01 08:03] LABS: Glucose,Whole Blood 141 mg/dL (70-110)
[2022-07-01 09:06] LABS: Basophils % (A) 1 %; Eosinophils % (A) 0 %; HGB 17.9 gm/dL (13.0-17.5); Lymphocytes % (A) 15 %; MCHC 32.4 g/dL (31.0-37.0); MCV 92.7 fL (80.0-100.0); Mean Platelet Volume 8.2; Monocytes # (A) 0.4 k/uL (0-1.0); Monocytes % (A) 6 %; Neutrophils # (A) 4.9 k/uL (1.3-7.7); Neutrophils % (A) 77 %; Platelet Count 185 k/uL (150-450); RBC 5.95 m/uL (4.30-5.90); RDW 13.5 % (11.5-15.5); WBC 6.3 k/uL (3.8-10.6)
[2022-07-01 09:16] LABS: HCT 55.2 % (39.0-53.0)
[2022-07-01] MEDS: atenoloL 25 MG TAB PO SCH (10:14)
[2022-07-01] MEDS: LOSARTAN 25 MG TAB PO SCH (10:15)
[2022-07-01] MEDS: METOCLOPRAMIDE 5 MG/ML 2 ML VIAL IVP SCH ×3 (10:16→21:10)
--- NOTE | 2022-07-01 11:12 | P.PN ---
Subjective Progress Note Date: 07/01/22 Principal diagnosis: Small bowel obstruction Patient says that since yesterday he has had 10 bowel movements. He says that his abdominal pain has resolved except now he has hunger pains. Patient's NG tube was clamped this morning. He had small bowel series done yesterday that shows some contrast in the rectum. Objective - Vital Signs Vital signs: Vital Signs Temp 97.8 F 07/01/22 08:00 Pulse 83 07/01/22 08:00 Resp 18 07/01/22 08:00 BP 159/82 07/01/22 08:00 Pulse Ox 95 07/01/22 08:00 FiO2 Intake & Output 06/30/22 07/01/22 07/01/22 18:59 06:59 18:59 Output Total 1200 950 850 Balance -1200 -950 -850 Output: Gastric Drainage 900 650 850 Urine 300 300 Other: Voiding Method Toilet Toilet Urinal Urinal # Bowel Movements 1 - Exam General examination - Alert and Oriented 3 in NAD Heart - + S1S2 no murmurs Lungs - Clear to auscultation Abdomen distended, diminished bowel sounds, + NG tube Extremities - No edema 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 Psych - Calm and cooperative - Labs CBC & Chem 7: 07/01/22 08:09 06/30/22 09:41 Labs: Abnormal Lab Results - Last 24 Hours (Table) 06/30/22 06/30/22 06/30/22 Range/Units 14:09 16:37 20:00 RBC (4.30-5.90) m/uL Hgb (13.0-17.5) gm/dL Hct (39.0-53.0) % POC Glucose (mg/dL) 138 H 147 H 131 H (70-110) mg/dL 07/01/22 07/01/22 07/01/22 Range/Units 00:04 03:45 08:01 RBC (4.30-5.90) m/uL Hgb (13.0-17.5) gm/dL Hct (39.0-53.0) % POC Glucose (mg/dL) 143 H 139 H 141 H (70-110) mg/dL 07/01/22 Range/Units 08:09 RBC 5.95 H (4.30-5.90) m/uL Hgb 17.9 H (13.0-17.5) gm/dL Hct 55.2 H (39.0-53.0) % POC Glucose (mg/dL) (70-110) mg/dL Assessment and Plan Assessment: 1. SBO -Patient states that he had bowel movements this morning -Small bowel series shows contrast in the rectum -NG tube clamped -Diet as per general surgery -Resume fluids and replete electrolytes as needed 2. Polycythemia Likely due to testosterone injections Hematology also following 3. DM 2 Goal blood sugar 140-180 while in hospital. Sliding scale insulin. We will adjust accordingly. 4. Hypertension Controlled. Continue with losartan and atenolol Disposition : Anticipate hospitilization for next 48 hours
[2022-07-01 12:05] LABS: Glucose,Whole Blood 156 mg/dL (70-110)
--- NOTE | 2022-07-01 12:49 | P.PN ---
Subjective Progress Note Date: 07/01/22 HISTORY OF PRESENT ILLNESS: This is a 52 year old male with a past medical history significant for hypertension, hyperlipidemia, and diabetes. 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 We have been asked to see the patient in consultation for abnormal EKG. Patient examined at the bedside. Patient presented to emergency room with a chief complaint of abdominal pain. Patient was found to have bowel obstruction and had an NG tube inserted. General surgery has been consulted for evaluation. The patient denies any chest pain or pressure. He denies any shortness of breath. He denies any previous cardiac workup including a stress test or cardiac catheterization. Patient's vital signs are stable. * EKG reveals sinus tachycardia with left bundle branch block. Telemetry re veals sinus mechanism with left bundle-branch block. * Laboratory data: WBC 4.7. Hemoglobin 18.6. Platelet count 148. Sodium 134. Potassium 3.9. BUN 15. Creatinine 0.72. Troponin negative 3 * Current home cardiac medications include Lipitor 10 mg at night, Cozaar 25 mg daily, atenolol 25 mg twice a day 06/29/2022 Patient seen and examined this morning at the bedside. Patient denies chest esequiel n or pressure. He denies shortness of breath. He continues to have an NG tube to low intermittent suction. The patient reports he is passing a lot of flatus today. Patient's blood pressure is elevated with a systolic in the 140s to 150s. However the patient has not received his blood pressure medication secondary to his nothing by mouth status. Echo cardiac echocardiogram completed revealing ejection fraction 60-65%. 06/30/2022 Patient examined this morning at the bedside. Patient denies chest pain or pressure. He denies shortness of breath. He reports passing flatus but denies having any bowel movements. He continues to have an NG tube to low intermittent suction. Blood pressure 153/88. 07/01/2022 Patient examined this morning at the bedside. He denies chest pain or pressure. Denies SOB. He reports 10 bowel movements overnight and decrease in abdominal pain. Vital signs are stable. PHYSICAL EXAM: VITAL SIGNS: Reviewed. GENERAL: Well-developed in no acute distress. HEENT: Head is normocephalic. Pupils are equal, round. Sclerae anicteric. Mucous membranes of the mouth are moist. Neck supple. No JVD or thyromegaly LUNGS: Respirations even and unlabored. Lungs essentially clear to auscultation bilaterally. HEART: Regular rate and rhythm. S1 and S2 heard. ABDOMEN: Soft. Nondistended. Nontender. EXTREMITIES: Normal range of motion. No clubbing or cyanosis. Peripheral pulses intact. No lower extremity edema NEUROLOGIC: Awake and alert. Oriented x 3. ASSESSMENT: Abdominal pain Small bowel obstruction Abnormal EKG revealing left bundle branch block, appears new compared to old EKG Hypertension Hyperlipidemia Diabetes PLAN: Continue current cardiac medication Patient is currently stable from a cardiac perspective. However when his acute issues resolve he will require further cardiac workup on an outpatient basis. We will sign off. Please reconsult if needed. Nurse practitioner note has been reviewed by physician. Signing provider agrees with the documented findings, assessment, and plan of care. Objective - Vital Signs Vital signs: Vital Signs Temp 97.8 F 07/01/22 08:00 Pulse 83 07/01/22 08:00 Resp 18 07/01/22 08:00 BP 159/82 07/01/22 08:00 Pulse Ox 95 07/01/22 08:00 FiO2 Intake & Output 06/30/22 07/01/22 07/01/22 18:59 06:59 18:59 Output Total 1200 950 850 Balance -1200 -950 -850 Output: Gastric Drainage 900 650 850 Urine 300 300 Other: Voiding Method Toilet Toilet Toilet Urinal Urinal Urinal # Bowel Movements 1 - Labs CBC & Chem 7: 07/01/22 08:09 06/30/22 09:41 Labs: Abnormal Lab Results - Last 24 Hours (Table) 06/30/22 06/30/22 06/30/22 Range/Units 14:09 16:37 20:00 RBC (4.30-5.90) m/uL Hgb (13.0-17.5) gm/dL Hct (39.0-53.0) % POC Glucose (mg/dL) 138 H 147 H 131 H (70-110) mg/dL 07/01/22 07/01/22 07/01/22 Range/Units 00:04 03:45 08:01 RBC (4.30-5.90) m/uL Hgb (13.0-17.5) gm/dL Hct (39.0-53.0) % POC Glucose (mg/dL) 143 H 139 H 141 H (70-110) mg/dL 07/01/22 07/01/22 Range/Units 08:09 12:03 RBC 5.95 H (4.30-5.90) m/uL Hgb 17.9 H (13.0-17.5) gm/dL Hct 55.2 H (39.0-53.0) % POC Glucose (mg/dL) 156 H (70-110) mg/dL
[2022-07-01 14:00] VITALS: BMI 35.9
--- NOTE | 2022-07-01 14:40 | P.PN ---
Subjective Progress Note Date: 07/01/22 Small bowel follow through showed no mechanical obstruction with contrast reaching the rectum. Patient had multiple BM overnight. Objective - Vital Signs Vital signs: Vital Signs Temp 98.0 F 07/01/22 12:00 Pulse 77 07/01/22 12:00 Resp 18 07/01/22 12:00 BP 149/85 07/01/22 12:00 Pulse Ox 96 07/01/22 12:00 FiO2 Intake & Output 06/30/22 07/01/22 07/01/22 18:59 06:59 18:59 Output Total 1200 950 850 Balance -1200 -950 -850 Weight 120.202 kg Output: Gastric Drainage 900 650 850 Urine 300 300 Other: Voiding Method Toilet Toilet Toilet Urinal Urinal Urinal # Bowel Movements 1 - Constitutional General appearance: Present: cooperative - Cardiovascular Rhythm: regular - Gastrointestinal Gastrointestinal Comment(s): S/NT/ND - Psychiatric Psychiatric: Present: A&O x's 3 - Labs CBC & Chem 7: 07/01/22 08:09 06/30/22 09:41 Labs: Abnormal Lab Results - Last 24 Hours (Table) 06/30/22 06/30/22 07/01/22 Range/Units 16:37 20:00 00:04 RBC (4.30-5.90) m/uL Hgb (13.0-17.5) gm/dL Hct (39.0-53.0) % POC Glucose (mg/dL) 147 H 131 H 143 H (70-110) mg/dL 07/01/22 07/01/22 07/01/22 Range/Units 03:45 08:01 08:09 RBC 5.95 H (4.30-5.90) m/uL Hgb 17.9 H (13.0-17.5) gm/dL Hct 55.2 H (39.0-53.0) % POC Glucose (mg/dL) 139 H 141 H (70-110) mg/dL 07/01/22 Range/Units 12:03 RBC (4.30-5.90) m/uL Hgb (13.0-17.5) gm/dL Hct (39.0-53.0) % POC Glucose (mg/dL) 156 H (70-110) mg/dL Assessment and Plan Assessment: Partial SBO vs Ileus resolved Plan: SBFT showed no obstruction, patient started on reglan and likely has ileus vs motility disorder causing slow transit. No plans for any general surgical intervention. NGT DC today and patient started on clears if he tolerates clears he can have a soft diet in the AM and stable from a surgical standpoint once tolerating diet.
[2022-07-01 16:08] VITALS: RESP 16
[2022-07-01 16:51] LABS: Glucose,Whole Blood 139 mg/dL (70-110)
[2022-07-01 21:10] LABS: Glucose,Whole Blood 170 mg/dL (70-110)
[2022-07-02] MEDS: HEPARIN SODIUM,PORCINE/PF 5,000 UNIT/0.5 ML SYRINGE SQ SCH ×2 (03:03→09:38)
[2022-07-02] MEDS: METOCLOPRAMIDE 5 MG/ML 2 ML VIAL IVP SCH ×2 (03:44→10:01)
[2022-07-02 05:02] VITALS: TEMP 98.9
[2022-07-02 05:51] LABS: Glucose,Whole Blood 144 mg/dL (70-110)
[2022-07-02 08:06] LABS: African American GFR (CKD) >90 (>60 ml/min/1.73 sqM); Anion Gap 11 mmol/L; Blood Urea Nitrogen 14 mg/dL (9-20); Calcium 8.8 mg/dL (8.4-10.2); Carbon Dioxide 30 mmol/L (22-30); Chloride 102 mmol/L (98-107); Glucose 194 mg/dL (74-99); Magnesium 1.8 mg/dL (1.6-2.3); Non-African American GFR(CKD) >90 (>60 ml/min/1.73 sqM); Potassium 3.7 mmol/L (3.5-5.1); Sodium 143 mmol/L (137-145)
[2022-07-02 09:37] VITALS: BP 161/80; PULSE 83
[2022-07-02] MEDS: LOSARTAN 25 MG TAB PO SCH (09:37)
[2022-07-02] MEDS: atenoloL 25 MG TAB PO SCH (09:37)
[2022-07-02 11:51] LABS: Glucose,Whole Blood 178 mg/dL (70-110)
--- NOTE | 2022-07-02 12:01 | P.PN ---
Subjective Progress Note Date: 07/02/22 Patient doing well multiple BM, tolerating soft diet Objective - Vital Signs Vital signs: Vital Signs Temp 98.9 F 07/02/22 04:00 Pulse 83 07/02/22 09:35 Resp 16 07/02/22 09:35 BP 161/80 07/02/22 09:35 Pulse Ox 95 07/02/22 09:35 FiO2 Intake & Output 07/01/22 07/02/22 07/02/22 18:59 06:59 18:59 Output Total 1150 250 600 Balance -1150 -250 -600 Weight 120.202 kg Output: Gastric Drainage 900 Urine 250 250 600 Other: Voiding Method Toilet Toilet Urinal Urinal # Voids 1 # Bowel Movements 1 1 1 - Constitutional General appearance: Present: cooperative - Respiratory Details: nonlabored - Cardiovascular Rhythm: regular - Gastrointestinal Gastrointestinal Comment(s): S/NT/ND - Psychiatric Psychiatric: Present: A&O x's 3 - Labs CBC & Chem 7: 07/01/22 08:09 07/02/22 07:05 Labs: Abnormal Lab Results - Last 24 Hours (Table) 07/01/22 07/01/22 07/01/22 Range/Units 12:03 16:50 21:08 Creatinine (0.66-1.25) mg/dL Glucose (74-99) mg/dL POC Glucose (mg/dL) 156 H 139 H 170 H (70-110) mg/dL 07/02/22 07/02/22 07/02/22 Range/Units 05:49 07:05 11:49 Creatinine 0.61 L (0.66-1.25) mg/dL Glucose 194 H (74-99) mg/dL POC Glucose (mg/dL) 144 H 178 H (70-110) mg/dL Assessment and Plan Assessment: Partial SBO vs Ileus resolved Plan: Patient is cleared from a surgical standpoint. No plans for surgical intervention. Patient can follow up with PCP
--- NOTE | 2022-07-02 13:25 | P.DS ---
Providers Date of admission: 06/27/22 23:45 Expected date of discharge: 07/02/22 Attending physician: Azam Philippe MD Consults: 06/27/22 23:49 Consult Physician Stat Consulting Provider: Yuri Christensen Consult Reason/Comments: Small bowel obstruction Do you want consulting provider notified?: Already Contacted 06/28/22 03:27 Consult Physician Routine Consulting Provider: Remington Turner Consult Reason/Comments: polycythemia Do you want consulting provider notified?: Yes, Notify in am Primary care physician: Rob Cotto MD Hospital Course: SBO Polycythemia DM 2 Hypertension 52-year-old male with diabetes mellitus on oral hypoglycemic agents, hypertension presented with 3 day history of worsening abdominal pain and distention associated with episodes of vomiting nonbilious nonbloody. In the ED workup showed no leukocytosis, lactic acid within normal limits, renal function within normal limits. Polycythemia with hemoglobin 19.5 most recent hemoglobin was from 2017 hemoglobin was around 18. Imaging of the abdomen with CAT scan suggested mechanical small bowel obstruction, surgery notified by ED. Patient had NG tube placed by surgery after multiple failed attempts by the emergency room, and was monitored for a total 5 days, which removed approximately 100 mL of green output. 72 hours after admission, patient underwent small bowel series on 06/30 which demonstrated oral contrast in the rectum. Patient gradually had increasing numbers of bowel movements. Surgery was able to advance patient's diet with the use of Reglan for nausea, and patient was subsequently abdominal pain-free, nausea free, tolerating GI soft diet, having stools on day of discharge. Patient will follow up with primary care physician. Also discharged on Reglan when necessary for nausea, vomiting I spent 34 minutes coordinating this complex discharge, discharge date 07/02 Gen: awake, alert HEENT: normocephalic, atraumatic, good hearing acuity, moist mucous membranes Resp: good air exchange, breathing comfortably with no accessory muscle use CVS: good distal perfusion x 4, GI: soft, NTTP, ND : no SPT, no CVAT, garcia catheter not present MSK: no pitting edema, no clubbing Neuro: non-focal, moving all extremities Psych: cooperative, euthymic mood Patient Condition at Discharge: Good Plan - Discharge Summary Discharge Rx Participant: No New Discharge Prescriptions: New Metoclopramide [Reglan] 5 mg PO ACHS PRN #120 tab PRN Reason: Nausea Continue Multivit-Min/Folic/Vit K/Lycop [One-A-Day Men's 50 Plus Tablet] 1 tab PO DAILY@0600 Atorvastatin [Lipitor] 10 mg PO HS@1999 Dapagliflozin/Metformin HCl [Xigduo Xr 10 mg-1,000 mg Tab] 1 tab PO DAILY@0600 atenoloL 25 mg PO BID@599,1999 Losartan [Cozaar] 25 mg PO DAILY@06 diazePAM [Valium] 2 mg PO HS@1999 Acetaminophen Tab [Tylenol] 1,000 mg PO Q6H PRN PRN Reason: Pain Finerenone [Kerendia] 10 mg PO DAILY@0600 diazePAM [Valium] 2 mg PO HS PRN PRN Reason: Insomnia Testosterone Cypionate [Depo-Testosterone] 400 mg IM Q30D Discharge Medication List Atorvastatin [Lipitor] 10 mg PO HS@199909/21/16 [History] Dapagliflozin/Metformin HCl [Xigduo Xr 10 mg-1,000 mg Tab] 1 tab PO DAILY@0600 09/21/16 [History] Multivit-Min/Folic/Vit K/Lycop [One-A-Day Men's 50 Plus Tablet] 1 tab PO DAILY@0600 09/21/16 [History] atenoloL 25 mg PO BID@599,199909/21/16 [History] Losartan [Cozaar] 25 mg PO DAILY@0600 05/24/19 [History] diazePAM [Valium] 2 mg PO HS@199905/24/19 [History] Acetaminophen Tab [Tylenol] 1,000 mg PO Q6H PRN 06/28/22 [History] Finerenone [Kerendia] 10 mg PO DAILY@0600 06/28/22 [History] Testosterone Cypionate [Depo-Testosterone] 400 mg IM Q30D 06/28/22 [History] diazePAM [Valium] 2 mg PO HS PRN 06/28/22 [History] Metoclopramide [Reglan] 5 mg PO ACHS PRN #120 tab 07/02/22 [Rx] Follow up Appointment(s)/Referral(s): Izzy Lopez MD [STAFF PHYSICIAN] - 3 Weeks (Spoke to salon receptionist. Office will call with appointment time) Rob Cotto MD [Primary Care Provider] - 1-2 days (Unable to get through. Please call to schedule appointment) Patient Instructions/Handouts: Bowel Obstruction (DC) Discharge Disposition: HOME SELF-CARE
== END 2022-07-02 13:49 | disposition home or self-care (01) | DRG 389 ==
LOC: EC 21:29 → 3SCARD 23:45
PROVIDERS: ADMIT Internal Medicine; ATTEND Internal Medicine
PROC: 0D9670Z Drainage of Stomach with Drainage Device, Via Natural or Artificial Opening (ICD-10-PCS; principal; 2022-06-27)
DX: K56.609 Unspecified intestinal obstruction, unspecified as to partial versus complete obstruction (principal); I45.89 Other specified conduction disorders; E11.9 Type 2 diabetes mellitus without complications; E78.5 Hyperlipidemia, unspecified; G47.33 Obstructive sleep apnea (adult) (pediatric); D75.1 Secondary polycythemia; R09.02 Hypoxemia; I44.7 Left bundle-branch block, unspecified; T38.7X5A Adverse effect of androgens and anabolic congeners, initial encounter; I10 Essential (primary) hypertension; Z79.84 Long term (current) use of oral hypoglycemic drugs; Z79.890 Hormone replacement therapy; Z79.899 Other long term (current) drug therapy; Z83.3 Family history of diabetes mellitus
CPT/HCPCS: 36415; 74019; 74022; 74177; 74250; 80048; 80053; 81003; 81270; 82150; 82668; 82728; 83036; 83540; 83550; 83605; 83615; 83690; 83735; 84484; 85025; 85652; 86038; 86431; 93005; 93306; 94760; 96361; 96374; 99285

== ENCOUNTER → 2022-09-22 | Outpatient (CLI) | payer BC ==
[2022-09-22 14:34] LABS: HCT 49.9 % (39.6-50.0); HGB 16.9 g/dL (13.0-17.0); MCH 29.5 pg (27.0-32.0); MCHC 33.9 g/dL (32.0-37.0); MCV 87.2 fL (80.0-97.0); NRBC Per 100 WBC 0 /100 WBCS (0.0-0.0); Platelet Count 235 X 10*3/uL (140-440); RBC 5.72 X 10*6/uL (4.40-5.60); RDW 13.3 % (11.5-14.5)
[2022-09-22 14:42] LABS: Anion Gap 7.5 mmol/L (10.00-18.00); Blood Urea Nitrogen 14.4 mg/dL (9.0-27.0); Carbon Dioxide 29.4 mmol/L (20.0-27.5); Non-African American GFR(CKD) 111.3 (60.0-200.0); Potassium 4.3 mmol/L (3.5-5.5)
== END | disposition home or self-care (01) ==
LOC: LABPAT 08:11
PROVIDERS: ATTEND Internal Medicine Interventional Cardiology
DX: Z01.812 Encounter for preprocedural laboratory examination (principal); R94.39 Abnormal result of other cardiovascular function study
CPT/HCPCS: 36415; 80051; 82565; 84520; 85027

== ENCOUNTER 2022-10-06 09:01 | Day surgery (SDC) | payer BC ==
[2022-10-04 14:27] VITALS: BMI 32.8
[~2022-10-06 09:01] MED LIST: ALPRAZolam 0.25 MG TAB PO PRN; ALPRAZolam 0.5 MG TAB PO PRN; ASPIRIN 325 MG TAB PO STA; ATORVASTATIN 80 MG TAB PO STA; HEPARIN SODIUM,PORCINE 10,000 UNIT in SODIUM CHLORIDE 0.9% 1,000 ML IRRIGATION PRN; HEPARIN SODIUM,PORCINE 2,500 UNIT in SODIUM CHLORIDE 0.9% 250 ML IRRIGATION PRN; NITROGLYCERIN SL TABS 0.4 MG TAB SUBLINGUAL PRN; SODIUM CHLORIDE 0.9% 1,000 ML in EMPTY BAG 1 BAG IV SCH
[2022-10-06 09:38] LABS: Glucose,Whole Blood 106 mg/dL (70-110)
[2022-10-06 09:50] VITALS: RESP 16; TEMP 97.6
[2022-10-06] MEDS ORDERED: fentaNYL (PF) 50 MCG/ML 2 ML AMP ONE (10:09)
[2022-10-06] MEDS ORDERED: VERAPAMIL 2.5 MG/ML 2 ML AMP ONE (10:09)
[2022-10-06] MEDS ORDERED: HEPARIN SODIUM 1,000 UN/ML (10ML VL) ONE (10:09)
[2022-10-06] MEDS ORDERED: fentaNYL (PF) 50 MCG/ML 2 ML AMP IV ONE (10:42)
[2022-10-06] MEDS ORDERED: LIDOCAINE 1% INJ 10MG/ML (30 ML VIAL-PF) SQ ONE (10:46)
[2022-10-06] MEDS ORDERED: MIDAZOLAM 2 MG/2 ML VIAL IV ONE (10:47)
[2022-10-06] MEDS ORDERED: VERAPAMIL SYRINGE (5 MG/10 ML) INTRAARTER ONE (10:48)
[2022-10-06] MEDS ORDERED: HEPARIN SODIUM 1,000 UN/ML (10ML VL) IV ONE (10:53)
[2022-10-06] MEDS ORDERED: NITROGLYCERIN 1000MCG/10ML SYRINGE INTRACORON ONE (11:07)
[2022-10-06] MEDS ORDERED: IOPAMIDOL-370 125ML BTL INJ ONE (11:14)
[2022-10-06] MEDS ORDERED: RX INFO: IV CONTRAST WAS GIVEN 1 EACH MISC MISCELLANE PRN (11:18)
--- NOTE | 2022-10-06 11:28 | P.CARDCATH ---
Date of Procedure: 10/06/22 Description of Procedure: Cardiac Catheterization: The patient is a 52-year-old male with known history of hypertension, hyperlipidemia and diabetes who recently underwent an MPI that showed transient dilatation of the left ventricle cavity with a reversible defect. Recommendations were made regarding cardiac catheterization, the risks and the complications were discussed with the patient who is in full understanding and agreement. Procedure Description: Patient was brought to tag and label cutter in fasting semi-sedated state after receiving Fentanyl and Benadryl achieiving moderate conscious sedated state. Using Xylocaine Anesthesia and Seldinger technique, a 6-Maltese sheath was introduced in the right radial artery . Subsequently, selective coronary angiography was performed using a 5-Maltese 3.5 bend Tommy catheter. Multiple views of the coronary artery including hemiaxial views were obtained. The 5-Maltese Pigtail catheter was used to cross the aortic valve and LVEDP was calculated. After removing the catheter a 6-Maltese CLS 3.5 guiding catheter was introduced and the ostium of the left main was cannulated. An Omni Doppler flow wire was introduced and positioned in the distal LAD. IFR was calculated at 0.92 to 0.94. Following that, catheter and sheath were removed. Hemostasis was obtained with deployment of TR band . There was no immediate complication. Patient was returned to room in stable condition. Of note, the patient received a total of 5000 units of intravenous heparin as well as intra-arterial verapamil. Findings: Left main: This is a large size vessel, bifurcating into LAD and left circumflex, left main has no high-grade stenosis LAD: This is a large size vessel, reaches to the apex, gives rise to a very proximal LAD branch. At the takeoff of the first septal wood heel fitter machine there is an eccentric 50-60% plaque the rest of the vessel has no high-grade stenosis. Left circumflex: This is a large nondominant vessel giving rise to 3 large obtuse marginal branch, the left circumflex has no evidence of high-grade stenosis RCA: This is a large dominant vessel, bifurcating into PDA and PLV, the right coronary artery and its branches have no evidence of high-grade stenosis Left Ventriculogram: Not performed Hemodynamics: There was no gradient across the aortic valve , LVEDP was 6-8 mmHg Conclusion: 1. Moderate disease in the proximal LAD 2. Normal IFR of the LAD consistent with non-hemodynamically significant lesion 3. No obstructive disease in the left circumflex and right coronary artery 4. Normal LVEDP Recommendations: In view of the findings I have recommended to continue aggressive coronary risks modifications with aggressive control of the cholesterol level. The findings and the recommendations were discussed with the patient and the family and they were in full understanding and agreement. Duration of sedation is 32 minutes.
[2022-10-06] MEDS ORDERED: SODIUM CHLORIDE 0.9% 1,000 ML IV SCH (11:30)
[2022-10-06 16:49] VITALS: BP 117/76; PULSE 54
[2022-10-06] MEDS ORDERED: ATORVASTATIN 10 MG TAB PO SCH (20:00)
[2022-10-06] MEDS ORDERED: atenoloL 25 MG TAB PO SCH (20:00)
[2022-10-06] MEDS ORDERED: NON FORMULARY DRUG (Finerenone [Kerendia] 10 MG Tablet) PO SCH (21:00)
[2022-10-07] MEDS ORDERED: MULTIVIT MIN PO SCH (06:00)
[2022-10-07] MEDS ORDERED: LYCOP PO SCH (06:00)
[2022-10-07] MEDS ORDERED: LOSARTAN 25 MG TAB PO SCH (06:00)
[2022-10-07] MEDS ORDERED: VIT K PO SCH (06:00)
[2022-10-07] MEDS ORDERED: [UNRECOGNIZED DRUG - OTHER] PO SCH (06:00)
[2022-10-07] MEDS ORDERED: FOLIC PO SCH (06:00)
[2022-10-07] MEDS ORDERED: NON FORMULARY DRUG (Aspirin Ec 81 MG Tablet) PO SCH (09:00)
== END 2022-10-06 16:00 | disposition home or self-care (01) ==
LOC: CATHCVL 09:01
PROVIDERS: ATTEND Internal Medicine Interventional Cardiology
DX: I44.7 Left bundle-branch block, unspecified (principal); I10 Essential (primary) hypertension; E78.2 Mixed hyperlipidemia; E11.9 Type 2 diabetes mellitus without complications; F17.210 Nicotine dependence, cigarettes, uncomplicated; Z82.49 Family history of ischemic heart disease and other diseases of the circulatory system
CPT/HCPCS: 93458; 93799; C1887; C1769 ×3; C1894; J2250; J2001; J3010; J1644; Q9967

== ENCOUNTER → 2023-02-10 | Outpatient (CLI) | payer BC ==
[2023-02-10 10:52] LABS: ALT 66 U/L (10-49); AST 31 U/L (14-35); Chol/HDL Ratio 3.89 Ratio; LDL Cholesterol,Calculated 73.6 mg/dL (0.0-131.0)
== END | disposition home or self-care (01) ==
LOC: LABWHC1 06:54
PROVIDERS: ATTEND Internal Medicine Interventional Cardiology
DX: E78.2 Mixed hyperlipidemia (principal)
CPT/HCPCS: 36415; 80061; 84450; 84460

== ENCOUNTER → 2023-09-22 | Outpatient (CLI) | payer BC ==
[2023-09-22 11:15] LABS: ALT 44 U/L (10-49); AST 22 U/L (14-35); Chol/HDL Ratio 4.26 Ratio; LDL Cholesterol,Calculated 49.4 mg/dL (0.0-131.0)
== END | disposition home or self-care (01) ==
LOC: LABWHC1 06:47
PROVIDERS: ATTEND Internal Medicine Interventional Cardiology
DX: E78.2 Mixed hyperlipidemia (principal)
CPT/HCPCS: 36415; 80061; 84450; 84460

== ENCOUNTER 2024-02-21 06:33 | Day surgery (SDC) | payer BC ==
[2024-02-21] MEDS: LACTATED RINGERS 1,000 ML IV SCH (07:12)
[2024-02-21 07:24] VITALS: RESP 16; TEMP 97.2
[2024-02-21 07:32] LABS: Glucose,Whole Blood 144 mg/dL (70-110)
[2024-02-21] MEDS ORDERED: PROPOFOL 10 MG/ML 20 ML VIAL IV ONE (07:48)
--- NOTE | 2024-02-21 08:05 | P.PCN ---
Date of Procedure: 02/21/24 Procedure(s) Performed: BRIEF HISTORY: Patient is a 53-year-old pleasant white male scheduled for an elective colonoscopy as a part of screening for colon cancer. PROCEDURE PERFORMED: Colonoscopy. PREOPERATIVE DIAGNOSIS: Screening for colon cancer. IV sedation per Anesthesia. PROCEDURE: After informed consent was obtained, the patient, was brought into the endoscopy unit. IV sedation was administered by Anesthesia under continuous monitoring. Digital rectal examination was normal. Initially the Olympus CF-160 flexible video colonoscope was then inserted in the rectum, gradually advanced into the cecum without any difficulty. Careful examination was performed as the scope was gradually being withdrawn. Ileocecal valve and the appendiceal orifice were visualized and appeared normal. Prep was excellent. Mucosa of the cecum, ascending colon, transverse colon, descending colon, sigmoid colon, and rectum appeared normal. Retroflexion was performed in the rectum and no lesions were seen. The patient tolerated the procedure well. IMPRESSION: Normal-appearing colon from rectum to cecum with no evidence of colorectal neoplasia. RECOMMENDATIONS: Findings of this examination were discussed with the patient as well as ahis family. He was advised to have a repeat screening colonoscopy in 10 years..
[2024-02-21 08:17] LABS: Glucose,Whole Blood 158 mg/dL (70-110)
[2024-02-21 08:42] VITALS: BP 136/91; PULSE 54
== END 2024-02-21 08:35 | disposition home or self-care (01) ==
LOC: ORWHC2ENDO 06:33
PROVIDERS: ATTEND Internal Medicine Gastroenterology
DX: Z12.11 Encounter for screening for malignant neoplasm of colon (principal); I10 Essential (primary) hypertension; E78.5 Hyperlipidemia, unspecified; E66.01 Morbid (severe) obesity due to excess calories; Z68.35 Body mass index [BMI] 35.0-35.9, adult; Z87.442 Personal history of urinary calculi; Z79.899 Other long term (current) drug therapy; Z79.84 Long term (current) use of oral hypoglycemic drugs; Z98.890 Other specified postprocedural states
CPT/HCPCS: 45378; J2704

== ENCOUNTER → 2024-04-03 | Outpatient (CLI) | payer BC ==
[2024-04-03 20:25] LABS: ALT 43 U/L (10-49); AST 33 U/L (14-35); Albumin 4.6 g/dL (3.8-4.9); Alkaline Phosphatase 68 U/L (41-126); BUN/Creat Ratio 24.86 Ratio (12.00-20.00); Blood Urea Nitrogen 17.4 mg/dL (9.0-27.0); Calcium 9.7 mg/dL (8.7-10.3); Carbon Dioxide 23.7 mmol/L (21.6-31.8); Chloride 104 mmol/L (96-109); Chol/HDL Ratio 3.66 Ratio; Glucose 125 mg/dL (70-110); LDL Cholesterol,Calculated 60.6 mg/dL (0.0-131.0); Potassium 4.3 mmol/L (3.5-5.5); Sodium 139 mmol/L (135-145); Total Bilirubin 0.6 mg/dL (0.3-1.2); Total Protein 6.6 g/dL (6.2-8.2)
== END | disposition home or self-care (01) ==
LOC: LABWHC1 08:43
PROVIDERS: ATTEND Internal Medicine Interventional Cardiology
DX: I10 Essential (primary) hypertension (principal); E78.2 Mixed hyperlipidemia
CPT/HCPCS: 36415; 80053; 80061

== ENCOUNTER → 2024-05-31 | Outpatient (CLI) | payer BC ==
--- NOTE | 2024-06-02 14:21 | XR ---
EXAMINATION TYPE: XR abdomen 1V DATE OF EXAM: 05/31/2024 COMPARISON: None INDICATION: Abdominal distention TECHNIQUE: Single view abdomen upright view FINDINGS: There is a normal bowel gas pattern. No suspicious air-fluid levels or differential air-fluid levels are evident. No free air is evident. No mass effect is evident. Psoas margins are normal. No organomegaly is present. IMPRESSION: 1. Unremarkable Abdomen
== END | disposition home or self-care (01) ==
LOC: RADXRMAIN 12:07
PROVIDERS: ATTEND Family Medicine
DX: R14.0 Abdominal distension (gaseous) (principal)
CPT/HCPCS: 74018

== ENCOUNTER → 2024-09-03 | Outpatient (CLI) | payer BC ==
[2024-09-03 10:23] LABS: ALT 40 U/L (10-49); AST 25 U/L (14-35); Chol/HDL Ratio 3.95 Ratio; LDL Cholesterol,Calculated 58.6 mg/dL (0.0-131.0)
== END | disposition home or self-care (01) ==
LOC: LABWHC1 07:33
PROVIDERS: ATTEND Internal Medicine Interventional Cardiology
DX: E78.2 Mixed hyperlipidemia (principal)
CPT/HCPCS: 36415; 80061; 84450; 84460